=== PATIENT | female | born 1970 | race Caucasian/White ===

== ENCOUNTER 2020-08-23 01:41 | Emergency (ER) | payer MEDICAID, SELFPAY ==
[2020-08-23 01:51] VITALS: BP 103/79; BP 114/72; PULSE 103; PULSE 88; RESP 18; TEMP 36.9; O2SAT 100; BMI 20.2
--- NOTE | 2020-08-23 01:54 | XR_ITS ---
EXAMINATION: XR CHEST CLINICAL INFORMATION: Shortness of breath COMPARISON: 03/09/2020 TECHNIQUE: Frontal view of the chest was obtained. FINDINGS: Lung volumes are symmetric. No focal consolidation is seen. No evidence of pneumothorax, pleural effusion, or pulmonary edema. The cardiomediastinal contour is unremarkable. No acute osseous findings are seen. XR/XR chest 1V IMPRESSION: No acute cardiopulmonary findings.
--- NOTE | 2020-08-23 01:54 | ECG_ITS ---
Test Reason : ANXIETY Blood Pressure : / mmHG Vent. Rate : 110 BPM Atrial Rate : 110 BPM P-R Int : 118 ms QRS Dur : 084 ms QT Int : 332 ms P-R-T Axes : 059 -19 059 degrees QTc Int : 449 ms Sinus tachycardia Left anterior fascicular block Possible Left atrial enlargement Abnormal ECG When compared with ECG of 08-MAR-2020 18:08, QT has shortened Referred By: Florencia Ortega Electronically Signed By:JUAN LUIS PEREZ MD
--- NOTE | 2020-08-23 01:55 | ED_ITS ---
HPI - SOB/Dyspnea General Chief Complaint: Anxiety Stated Complaint: anxiety Time Seen by Provider: 08/23/20 01:52 History of Present Illness HPI Narrative: Patient is a 49-year-old female paraplegic history of stroke history of diabetes history of large decubital ulcer. Presented today with having episode of anxiety attack. Patient feel very anxious. Upon departure from her apartment the symptom has improved. Patient denies any suicidal homicidal ideation. Complaining of chronic pain located in her large decubital ulcer. No chest pain or diaphoresis. No nausea no vomiting. No focal weakness. Related Data Allergies Allergy/AdvReac Type Severity Reaction Status Date / Time No Known Allergies Allergy Unverified 06/20/20 15:45 Review of Systems Review of Systems: Constitutional: No Weight loss, No Fever, No Chills, No Night Sweats, No Fatigue, No Malaise ENT/Mouth: No Hearing loss, No Ear Pain, No Nasal Congestion, No Sinus Pain, No Hoarseness, No sore throat, No Rhinorrhea, No Swallowing Difficulty Eyes: No Eye Pain, No Swelling, No Redness, No Foreign Body, No Discharge, No Vision Changes Cardiovascular: No Chest Pain, No SOB, No Dyspnea on Exertion, No Orthopnea, No Edema, No Palpitations Respiratory: No Cough, No Sputum, No Wheezing, No Smoke Exposure, No Dyspnea Gastrointestinal: No Nausea, No Vomiting, No Diarrhea, No Constipation, No abdominal Pain, No Hematochezia, No Melena Genitourinary: no irregular bleeding, No Dysuria, No Urinary Frequency, No Hematuria, No Urinary Incontinence, No Urgency, No Flank Pain, No Urinary Flow Changes, No Hesitancy Musculoskeletal: No joint pain, No Myalgias, No Joint Swelling Skin: No Skin Lesions, No rash Neuro: No Weakness, No Numbness, No Paresthesias, No Loss of Consciousness, No Dizziness, No Headache Psych: No Anxiety/Panic, No Depression, No SI/HI/AH/VH, No Social Issues, Heme/Lymph: No Bruising, No Bleeding,No Lymphadenopathy Endocrine: No Polyuria, No Polydipsia, No Temperature Intolerance PMFSH Past Medical History Attestation statement: The following information was validated with the patient. Medical History Asthma Diabetes HIV (human immunodeficiency virus infection) HTN (hypertension) Social History Social History Alcohol intake: never Smoking Status: Never smoker Use of substances other than those prescribed or required for medical reasons: No Advance Directives: No Advance Directives Information Provided: No Physical Exam Vital Signs: Vital Signs: Last Vital Signs Temp 98.5 F 08/23/20 05:53 Pulse 96 08/23/20 05:53 Resp 18 08/23/20 05:53 BP 104/59 L 08/23/20 05:53 Pulse Ox 100 08/23/20 05:53 Body Mass Index 20.2 Appearance: Alert. Oriented X3. No acute distress. Eyes: Pupils equal, round and reactive to light. ENT: Pharynx normal. Neck: Normal inspection. Neck supple. No lymph nodes noted. No crepitus CVS: Normal heart rate and rhythm. Pulses normal. Normal S1 and S2 Respiratory: No respiratory distress. Breath sounds normal. No Wheezing. No rales Abdomen: Soft and nontender. No rigidity. No distention. good BS x4 Skin: Skin warm and dry. Normal skin color. 3 large decubital ulcer in the gluteal area down to muscle. With granulation tissue at the base. Extremities: No lower extremity edema. Neurovascular intact to all extremities. No Lacerations. No Rash Neuro: Oriented X 3. Weakness in bilateral lower extremities. No slurred speech MDM - SOB/Dyspnea MDM Narrative Medical decision making narrative: patient has a history of anxiety. No distress. Has nonspecific chest tightness elevation in cardiac enzymes has actually improved from previous. Patient's EKG showed a sinus pattern heart rate was [address] segment elevation noted. Will get a 2nd set of cardiac enzymes. Will monitor carefully. X-ray did not show any evidence of pneumonia pneumothorax. Patient is sleeping after dose of Dilaudid. In no distress. Second set of cardiac enzyme was done there is a less than 10% rise. Will discharge patient home. More likely patient has symptoms suggestive of anxiety. In stable condition with discharge home. X-ray did not show any acute evidence of pneumonia pneumothorax. Lab Data Result diagrams: 08/23/20 02:32 08/23/20 02:32 Labs: Lab Results 08/23/20 08/23/20 08/23/20 Range/Units 02:10 02:32 02:32 WBC 13.4 H (4.8-10.8) X10*3/uL RBC 3.38 L (4.20-5.50) X10*6/uL Hgb 8.3 L (12.0-16.0) g/dl Hct 29.5 L (37-47) % MCV 87.3 (80-98) fL MCH 24.6 L (27.0-33.0) pg MCHC 28.1 L (31.0-35.0) g/dl RDW 15.3 (11.0-16.0) % Plt Count 707 H (160-400) X10*3/uL MPV 8.9 L (9.4-12.3) fL Immature Gran % (Auto) 0.4 (0.0-0.4) % Neut % (Auto) 82.9 H (45-73) % Lymph % (Auto) 10.1 L (20-40) % [place] % (Auto) 6.1 (2-11) % Eos % (Auto) 0.3 (0-4) % Baso % (Auto) 0.2 (0-2) % Lymph # (Auto) 1.4 (1.2-4.9) X10*3/uL [place] # (Auto) 0.8 (0.1-1.2) X10*3/uL Eos # (Auto) 0.0 (0.0-0.4) X10*3/uL Baso # (Auto) 0.0 (0.0-0.2) X10*3/uL Abs Immat Gran (auto) 0.06 H (0.00-0.03) X10*3/uL Absolute Neuts (auto) 11.1 H (2.0-8.3) X10*3/uL Absolute Nucleated RBC 0.000 (0.0-0.012) X10*3/uL Nucleated RBC % (auto) 0.0 (0.0-0.2) /100WBC PT 15.6 H (10.8-13.0) SEC INR 1.3 H (0.9-1.1) Sodium (135-145) mmol/L Potassium (3.3-5.1) mmol/l Chloride (96-108) mmol/L Carbon Dioxide (22-29) mmol/L Anion Gap (12-20) BUN (9-16) mg/dL Creatinine (0.5-1.4) mg/dL Estim Creat Clear Calc Estimated GFR POC Glucose 376 H* (60-115) mg/dL Random Glucose (60-115) mg/dL Calcium (8.4-10.2) mg/dL Total Bilirubin (0.0-1.0) mg/dL Direct Bilirubin (0.0-0.5) mg/dL AST (5-31) U/L ALT (0-31) U/L Alkaline Phosphatase (39-117) U/L Troponin I High Sens (<3.5-17.0) ng/L Total Protein (6.5-8.0) g/dL Albumin (3.5-5.0) g/dL COVID-19 PCR COVID-19 (ADALID) (Negative) COVID-19 Clin Com 08/23/20 08/23/20 08/23/20 Range/Units 02:32 02:32 04:05 WBC (4.8-10.8) X10*3/uL RBC (4.20-5.50) X10*6/uL Hgb (12.0-16.0) g/dl Hct (37-47) % MCV (80-98) fL MCH (27.0-33.0) pg MCHC (31.0-35.0) g/dl RDW (11.0-16.0) % Plt Count (160-400) X10*3/uL MPV (9.4-12.3) fL Immature Gran % (Auto) (0.0-0.4) % Neut % (Auto) (45-73) % Lymph % (Auto) (20-40) % [place] % (Auto) (2-11) % Eos % (Auto) (0-4) % Baso % (Auto) (0-2) % Lymph # (Auto) (1.2-4.9) X10*3/uL [place] # (Auto) (0.1-1.2) X10*3/uL Eos # (Auto) (0.0-0.4) X10*3/uL Baso # (Auto) (0.0-0.2) X10*3/uL Abs Immat Gran (auto) (0.00-0.03) X10*3/uL Absolute Neuts (auto) (2.0-8.3) X10*3/uL Absolute Nucleated RBC (0.0-0.012) X10*3/uL Nucleated RBC % (auto) (0.0-0.2) /100WBC PT (10.8-13.0) SEC INR (0.9-1.1) Sodium 136 (135-145) mmol/L Potassium 5.1 (3.3-5.1) mmol/l Chloride 104 (96-108) mmol/L Carbon Dioxide 22 (22-29) mmol/L Anion Gap 15 (12-20) BUN 9 (9-16) mg/dL Creatinine 0.74 (0.5-1.4) mg/dL Estim Creat Clear Calc 71.1 Estimated GFR > 60 POC Glucose (60-115) mg/dL Random Glucose 450 H* (60-115) mg/dL Calcium 8.0 L (8.4-10.2) mg/dL Total Bilirubin 0.3 (0.0-1.0) mg/dL Direct Bilirubin < 0.2 (0.0-0.5) mg/dL AST 7 (5-31) U/L ALT < 6 (0-31) U/L Alkaline Phosphatase 198 H (39-117) U/L Troponin I High Sens 19.4 H (<3.5-17.0) ng/L Total Protein 6.8 (6.5-8.0) g/dL Albumin 2.5 L (3.5-5.0) g/dL COVID-19 PCR Cancelled COVID-19 (ADALID) (Negative) COVID-19 Clin Com 08/23/20 08/23/20 08/23/20 Range/Units 04:05 06:03 06:18 WBC (4.8-10.8) X10*3/uL RBC (4.20-5.50) X10*6/uL Hgb (12.0-16.0) g/dl Hct (37-47) % MCV (80-98) fL MCH (27.0-33.0) pg MCHC (31.0-35.0) g/dl RDW (11.0-16.0) % Plt Count (160-400) X10*3/uL MPV (9.4-12.3) fL Immature Gran % (Auto) (0.0-0.4) % Neut % (Auto) (45-73) % Lymph % (Auto) (20-40) % [place] % (Auto) (2-11) % Eos % (Auto) (0-4) % Baso % (Auto) (0-2) % Lymph # (Auto) (1.2-4.9) X10*3/uL [place] # (Auto) (0.1-1.2) X10*3/uL Eos # (Auto) (0.0-0.4) X10*3/uL Baso # (Auto) (0.0-0.2) X10*3/uL Abs Immat Gran (auto) (0.00-0.03) X10*3/uL Absolute Neuts (auto) (2.0-8.3) X10*3/uL Absolute Nucleated RBC (0.0-0.012) X10*3/uL Nucleated RBC % (auto) (0.0-0.2) /100WBC PT (10.8-13.0) SEC INR (0.9-1.1) Sodium (135-145) mmol/L Potassium (3.3-5.1) mmol/l Chloride (96-108) mmol/L Carbon Dioxide (22-29) mmol/L Anion Gap (12-20) BUN (9-16) mg/dL Creatinine (0.5-1.4) mg/dL Estim Creat Clear Calc Estimated GFR POC Glucose 287 H (60-115) mg/dL Random Glucose (60-115) mg/dL Calcium (8.4-10.2) mg/dL Total Bilirubin (0.0-1.0) mg/dL Direct Bilirubin (0.0-0.5) mg/dL AST (5-31) U/L ALT (0-31) U/L Alkaline Phosphatase (39-117) U/L Troponin I High Sens 21.9 H (<3.5-17.0) ng/L Total Protein (6.5-8.0) g/dL Albumin (3.5-5.0) g/dL COVID-19 PCR COVID-19 (ADALID) Negative (Negative) COVID-19 Clin Com See Note ECG Data Interpretation: Sinus heart rate is 110 NM QRS QT within normal limits Discharge Plan Discharge Clinical Impression: Acute anxiety Patient Disposition: Home, Self-Care Instructions: Anxiety (ED) Referrals: [facility] [Primary Care Provider] - 2 days
[2020-08-23 02:16] LABS: Glucose, Whole Blood 376 mg/dL (60-115)
[2020-08-23] MEDS: LORazepam 1 MG TABLET PO (02:35)
[2020-08-23 02:39] LABS: Basophils Percent Auto 0.2 % (0-2); Eosinophils Percent Auto 0.3 % (0-4); Hematocrit 29.5 % (37-47); Hemoglobin 8.3 g/dl (12.0-16.0); Imm Gran Abs Auto 0.06 X10*3/uL (0.00-0.03); Imm Gran Pct Auto 0.4 % (0.0-0.4); Lymphocytes Absolute Auto 1.4 X10*3/uL (1.2-4.9); Lymphocytes Percent Auto 10.1 % (20-40); MANUAL DIFF FLAG NO; Mean Corpuscular HGB Conc 28.1 g/dl (31.0-35.0); Mean Corpuscular Hemoglobin 24.6 pg (27.0-33.0); Mean Corpuscular Volume 87.3 fL (80-98); Mean Platelet Volume 8.9 fL (9.4-12.3); Monocytes Absolute Auto 0.8 X10*3/uL (0.1-1.2); Monocytes Percent Auto 6.1 % (2-11); Neutrophils Absolute Auto 11.1 X10*3/uL (2.0-8.3); Neutrophils Percent Auto 82.9 % (45-73); Platelet Count 707 X10*3/uL (160-400); Red Blood Count 3.38 X10*6/uL (4.20-5.50); Red Cell Distribution Width 15.3 % (11.0-16.0); White Blood Count 13.4 X10*3/uL (4.8-10.8)
[2020-08-23 02:49] LABS: INTERNATIONAL NORM RATIO 1.3 (0.9-1.1); Prothrombin Time 15.6 SEC (10.8-13.0)
[2020-08-23 03:18] LABS: Alanine Aminotransferase < 6 U/L (0-31); Albumin Level 2.5 g/dL (3.5-5.0); Alkaline Phosphatase 198 U/L (39-117); Anion Gap 15 (12-20); Aspartate Amino Transferase 7 U/L (5-31); Bilirubin Direct < 0.2 mg/dL (0.0-0.5); Bilirubin Total 0.3 mg/dL (0.0-1.0); Blood Urea Nitrogen 9 mg/dL (9-16); Carbon Dioxide 22 mmol/L (22-29); Chloride 104 mmol/L (96-108); Creatinine Clr Calc Pharmacy 71.1; Estimated Glomerular Filt Rate > 60; Glucose Random 450 mg/dL (60-115); Potassium 5.1 mmol/l (3.3-5.1); Sodium 136 mmol/L (135-145); Total Protein 6.8 g/dL (6.5-8.0); Troponin-I High Sensitivity 19.4 ng/L (<3.5-17.0)
[2020-08-23] MEDS: 0.9 % Sodium Chloride 1,000 ML 999 ML IVCONT (03:52)
[2020-08-23] MEDS: Insulin Regular, Human 100 UNIT/ML 3 ML VIAL IVPUSH (03:52)
--- NOTE | 2020-08-23 03:59 | PC.NURSE ---
this rn in with pat rn to do wound care of pt chronic decubitus ulcers. wound measuring approx 6 inches at widest point on sacrum, 3 inch wide tunneling ulcer noted to pt rt medial buttock. wounds cleaned with wound cleanser and packed with wet gauze, drainage pad applied for cushion. pt tolerating very well and pt wounds healing. pt stating that she has pct that will visit in the morning at about 7am for wound care and pain management
[2020-08-23] MEDS: HYDROmorphone HCl 1 MG/ML SYRINGE IVPUSH (04:07)
[2020-08-23 04:29] LABS: COVID-19 Test Negative (Negative)
[2020-08-23 05:53] VITALS: BP 104/59; PULSE 96; RESP 18; TEMP 36.9; O2SAT 100
[2020-08-23 06:23] LABS: Glucose, Whole Blood 287 mg/dL (60-115)
[2020-08-23 06:35] LABS: Troponin-I High Sensitivity 21.9 ng/L (<3.5-17.0)
[2020-08-23 07:15] VITALS: BP 105/59; PULSE 96; RESP 16; O2SAT 96
--- NOTE | 2020-08-23 07:57 | PC.NURSE ---
PT HAD A LARGE BM, BUTTOCKS/SACRAL AREA CLEANED AND DRESSINGS CHANGED SANDRA CATH EMPTIED OF 400ML URINE IV ACCESS REMOVED UNDERWRITER HERE FOR TRANSPORT HOME
== END 2020-08-23 08:00 | disposition home or self-care (01) ==
PROVIDERS: Emergency Provider Emergency Medicine Emergency Medical Services
DX: F41.1 Generalized anxiety disorder (principal); F43.0 Acute stress reaction; R06.02 Shortness of breath; Z20.828 Contact with and (suspected) exposure to other viral communicable diseases
CPT/HCPCS: 36415; 71045; 80048; 80076; 82947; 84484; 85025; 85610; 87635; 93005; 96361; 96374; 96375; 99284; J1170

== ENCOUNTER 2020-08-25 18:09 | Inpatient (IN) | payer MEDICAID, SELFPAY ==
[2020-08-25 18:24] VITALS: BP 98/70; PULSE 94; RESP 18; TEMP 36.6; O2SAT 100; BMI 20.2
--- NOTE | 2020-08-25 19:11 | ED_ITS ---
HPI - Wound/Laceration General Chief Complaint: Wound/Laceration Stated Complaint: OPEN WOUND ON BOTTOM Time Seen by Provider: 08/25/20 18:33 Source: patient Mode of arrival: EMS Limitations: no limitations History of Present Illness HPI narrative: patient presents to the ED for pain and sacral ulcers. Patient states pain has been occurring for the past 4 days. Patient states no fever, chills, abdominal pain, coughing, chest pain, shortness of breath, or diarrhea. Related Data Previous Rx's Medication Instructions Recorded ciprofloxacin HCl [Cipro] 500 mg PO Q12H #28 tab 08/25/20 doxycycline hyclate 100 mg PO BID #20 cap 08/25/20 Allergies Allergy/AdvReac Type Severity Reaction Status Date / Time No Known Allergies Allergy Verified 08/25/20 18:23 Review of Systems Review of Systems: Yes all other systems are reviewed and are negative Constitutional: Constitutional: Reports as per HPI and Reports no additional constitutional complaints Eyes: Eyes: Reports as per HPI and Reports no additional eye complaints ENT: Reports system reviewed and no additional complaints, except as documented and Reports as per HPI Cardiovascular: Cardiovascular: Reports as per HPI and Reports no additional cardiovascular complaints Respiratory: Respiratory: Reports as per HPI and Reports no additional respiratory complaints Gastrointestinal: Gastrointestinal: Reports as per HPI and Reports no additional gastrointestinal complaints Genitourinary: Genitourinary: Reports no additional female genitourinary complaints and Reports as per HPI Musculoskeletal: Musculoskeletal: Reports no additional musculoskeletal complaints and Reports as per HPI Comments: sacral ulcer pain Neurologic: Reports system reviewed and no additional complaints, except as documented and Reports as per HPI Psychiatric: Psychiatric: Reports no additional psychiatric complaints and Reports as per HPI [facility] Past Medical History Medical History Asthma Diabetes HIV (human immunodeficiency virus infection) HTN (hypertension) Social History Social History Alcohol intake: never Smoking Status: Never smoker Advance Directives: No Advance Directives Information Provided: Yes Physical Exam Vital Signs: Vital Signs: Last Vital Signs Temp 97.9 F 08/25/20 18:24 Pulse 70 08/26/20 00:00 Resp 16 08/26/20 00:00 BP 130/88 08/26/20 00:00 Pulse Ox 97 08/26/20 00:00 Body Mass Index 20.2 Const: General: cooperative, healthy appearing, comfortable, no acute distress and well developed Orientation/consciousness: patient oriented x3 HENMT: Head: Yes normal to inspection and Yes No palpable skull fracture present Eyes: General: appearance normal, both eyes and all related structures Neck: Neck: Yes normal visual inspection, Yes full ROM, Yes no lymphadenopathy, Yes no meningeal signs, Yes trachea midline, Yes supple and Yes tender Chest: Chest palpation & inspection: normal inspection of the chest, normal palpation of entire chest wall and no localized rib tenderness Resp: Effort & Inspection: normal respiratory effort and able to speak in complete sentences Auscultation: clear to auscultation bilaterally Cardio: Jugular venous distension: no JVD Heart sounds: S1 normal heart sound present and S2 normal heart sound present GI: Inspection: Yes normal to inspection and No abdominal wall ecchymosis Palpation (GI): Soft to palpation, not firm, nontender, no guarding and not rigid Back/Spine/Pelvis: Other: she has this large sacral coccyx ulcer - stage III that is healthy looking. patient has right gluteal stage III decubitus ulcer with some yellowish discharge/ collection. Indicate possible infection. Skin: Other: Two large decubitus ulcer Neuro: General: patient oriented x3 and no meningeal signs Extrem: General: Yes normal to inspection Psych: Appearance: grossly normal, well kempt and not disheveled Course Course Course Narrative: labs including lactate and blood cultures will be ordered. Patient will be sent for CT scan to check for osteomyelitis of wound. Reevaluation(s) Reevaluation #1: Patient was sent for CT scan which showed osteomyelitis in his sacral ulcer area. Patient was informed of this. spoke with hospitalist who agreed patient should be admitted. Hospitalist went to see patient, and patient refused to be admitted. Patient informed she could from osteomyelitis which is a bone infection if he does not get admitted for IV antibiotics, but patient refused and would like to be discharged to take the risk of being from osteomyelitis. With Dr. Larsen who recommends patient being sent with Kimi Time: 21:47 Reevaluation #2: Patient family agrees to be admitted after multiple attempts by myself and the nurse for admission. Patient was refusing to receive IV and antibiotics was delaying care. Presently IV antibiotics running. Patient blood pressure improving received Dilaudid. Hospitalist made aware of case. syst olic pressure of 130 on monitor. Time: 01:07 MDM - Wound/Laceration MDM Narrative Medical decision making narrative: osteomyelitis Lab Data Result diagrams: 08/25/20 19:42 08/25/20 19:42 Labs: Lab Results 08/25/20 08/25/20 08/25/20 Range/Units 19:42 19:42 19:42 WBC 12.5 H (4.8-10.8) X10*3/uL RBC 4.19 L D (4.20-5.50) X10*6/uL Hgb 10.3 L D (12.0-16.0) g/dl Hct 37.0 D (37-47) % MCV 88.3 (80-98) fL MCH 24.6 L (27.0-33.0) pg MCHC 27.8 L (31.0-35.0) g/dl RDW 14.9 (11.0-16.0) % Plt Count 792 H (160-400) X10*3/uL MPV 8.8 L (9.4-12.3) fL Immature Gran % (Auto) 0.4 (0.0-0.4) % Neut % (Auto) 78.6 H (45-73) % Lymph % (Auto) 15.4 L (20-40) % [place] % (Auto) 3.6 (2-11) % Eos % (Auto) 1.6 (0-4) % Baso % (Auto) 0.4 (0-2) % Lymph # (Auto) 1.9 (1.2-4.9) X10*3/uL [place] # (Auto) 0.5 (0.1-1.2) X10*3/uL Eos # (Auto) 0.2 (0.0-0.4) X10*3/uL Baso # (Auto) 0.1 (0.0-0.2) X10*3/uL Abs Immat Gran (auto) 0.05 H (0.00-0.03) X10*3/uL Absolute Neuts (auto) 9.9 H (2.0-8.3) X10*3/uL Absolute Nucleated RBC 0.000 (0.0-0.012) X10*3/uL Nucleated RBC % (auto) 0.0 (0.0-0.2) /100WBC PT 15.9 H (10.8-13.0) SEC INR 1.3 H (0.9-1.1) APTT 45.8 H (24.1-38.0) SEC Sodium 137 (135-145) mmol/L Potassium 4.5 (3.3-5.1) mmol/l Chloride 104 (96-108) mmol/L Carbon Dioxide 24 (22-29) mmol/L Anion Gap 14 (12-20) BUN 6 L (9-16) mg/dL Creatinine 0.65 (0.5-1.4) mg/dL Estim Creat Clear Calc 80.9 Estimated GFR > 60 Random Glucose 276 H D (60-115) mg/dL Lactic Acid (0.5-2.0) mmol/L Calcium 9.0 D (8.4-10.2) mg/dL Total Bilirubin < 0.2 (0.0-1.0) mg/dL AST 11 D (5-31) U/L ALT 9 (0-31) U/L Alkaline Phosphatase 212 H (39-117) U/L Total Protein 8.0 (6.5-8.0) g/dL Albumin 3.0 L (3.5-5.0) g/dL 08/25/ Range/Units 19:42 WBC (4.8-10.8) X10*3/uL RBC (4.20-5.50) X10*6/uL Hgb (12.0-16.0) g/dl Hct (37-47) % MCV (80-98) fL MCH (27.0-33.0) pg MCHC (31.0-35.0) g/dl RDW (11.0-16.0) % Plt Count (160-400) X10*3/uL MPV (9.4-12.3) fL Immature Gran % (Auto) (0.0-0.4) % Neut % (Auto) (45-73) % Lymph % (Auto) (20-40) % [place] % (Auto) (2-11) % Eos % (Auto) (0-4) % Baso % (Auto) (0-2) % Lymph # (Auto) (1.2-4.9) X10*3/uL [place] # (Auto) (0.1-1.2) X10*3/uL Eos # (Auto) (0.0-0.4) X10*3/uL Baso # (Auto) (0.0-0.2) X10*3/uL Abs Immat Gran (auto) (0.00-0.03) X10*3/uL Absolute Neuts (auto) (2.0-8.3) X10*3/uL Absolute Nucleated RBC (0.0-0.012) X10*3/uL Nucleated RBC % (auto) (0.0-0.2) /100WBC PT (10.8-13.0) SEC INR (0.9-1.1) APTT (24.1-38.0) SEC Sodium (135-145) mmol/L Potassium (3.3-5.1) mmol/l Chloride (96-108) mmol/L Carbon Dioxide (22-29) mmol/L Anion Gap (12-20) BUN (9-16) mg/dL Creatinine (0.5-1.4) mg/dL Estim Creat Clear Calc Estimated GFR Random Glucose (60-115) mg/dL Lactic Acid 1.3 (0.5-2.0) mmol/L Calcium (8.4-10.2) mg/dL Total Bilirubin (0.0-1.0) mg/dL AST (5-31) U/L ALT (0-31) U/L Alkaline Phosphatase (39-117) U/L Total Protein (6.5-8.0) g/dL Albumin (3.5-5.0) g/dL Discharge Plan Discharge Clinical Impression: Osteomyelitis Patient Disposition: Admitted As Inpatient Additional Instructions: return to the ED immediately for fever, chills, worsening pain, nausea, vomiting, Worsening discharge, foul odor, increased redness, or any other concerning symptoms. Print Language: Tajik
--- NOTE | 2020-08-25 19:28 | CT_ITS ---
EXAMINATION: CT PELVIS WITHOUT CONTRAST CLINICAL INFORMATION: Sacral/coccyx ulcer. Question osteomyelitis. COMPARISON: Most recent CT abdomen/pelvis dated 03/12/2020. TECHNIQUE: Helical scanning was performed with submillimeter collimation through the pelvis. Sagittal and coronal multiplanar 2-D reconstructions were obtained. This CT examination was performed using dose optimization techniques as appropriate, variously including the following: *Automated exposure control. *Adjustment of mA and/or kV according to patient size (this includes techniques or standardized protocols for targeted exams where dose is matched to indication/reason for exam; i.e. extremities or head). *Use of iterative reconstruction technique. DLP: 257 mGy-cm FINDINGS: Redemonstration of a partially visualized right ureteral stent. Burnham catheter in place. Urinary bladder is non-distended. No new intrapelvic mass or fluid collection. The visualized pelvic small and large bowel loops are unremarkable without evidence of obstruction. The uterus is unremarkable. There is new soft tissue ulceration along the posterior aspect of the sacrum measuring up to 8.7 cm in craniocaudal dimension with the posterior sacrum being exposed. There is erosion/absence of the distal sacrum and coccyx involving S4 and S5 as well as the proximal aspect of C1. Findings are consistent with acute osteomyelitis. Prominent adjacent soft tissue stranding most significant ventral to the remaining distal sacrum and coccyx, consistent with cellulitis/phlegmonous change. No associated abscess formation. Chronic, displaced pelvic fractures are redemonstrated with mild interval new bone/callus formation when compared to the prior CT. Redemonstration of a left sacral fracture in similar anatomic alignment with mild new bone/callus formation. CT/CT pelvis wo con IMPRESSION: 1. New large soft tissue ulceration along the posterior aspect of the distal sacrum with associated osseous erosion/absence of bone involving S4 through C1. Findings are consistent with acute osteomyelitis. Prominent adjacent soft tissue stranding, most significant ventral to the remaining distal sacrum and coccyx, consistent with cellulitis/phlegmonous change. No associated abscess formation. 2. Chronic left sacral and pelvic fractures in similar anatomic alignment with mild new bone/callus formation. 3. Partially visualized right ureteral stent and Burnham catheter in appropriate position.
--- NOTE | 2020-08-25 19:46 | PC.NURSE ---
PT REFUSING TORADOL AND FENTANYL AT THIS TIME AND REQUESTING DILAUDID B/O PT STATES NOTHING WORKS FOR MY PAIN . PA IN ROOM FOR RE-EVAL.
[2020-08-25 19:52] LABS: MANUAL DIFF FLAG NO
[2020-08-25 19:59] LABS: INTERNATIONAL NORM RATIO 1.3 (0.9-1.1); Prothrombin Time 15.9 SEC (10.8-13.0)
[2020-08-25] MEDS: 0.9 % Sodium Chloride 1,000 ML 999 ML IVCONT ×2 (20:00→23:22)
[2020-08-25 20:02] LABS: Partial Thromboplastin Time 45.8 SEC (24.1-38.0)
--- NOTE | 2020-08-25 20:02 | PC.NURSE ---
PT TO CT IN STRETCHER.
[2020-08-25 20:04] LABS: Basophils Absolute Auto 0.1 X10*3/uL (0.0-0.2); Basophils Percent Auto 0.4 % (0-2); Eosinophils Absolute Auto 0.2 X10*3/uL (0.0-0.4); Eosinophils Percent Auto 1.6 % (0-4); Hemoglobin 10.3 g/dl (12.0-16.0); Imm Gran Abs Auto 0.05 X10*3/uL (0.00-0.03); Imm Gran Pct Auto 0.4 % (0.0-0.4); Lymphocytes Absolute Auto 1.9 X10*3/uL (1.2-4.9); Lymphocytes Percent Auto 15.4 % (20-40); Mean Corpuscular HGB Conc 27.8 g/dl (31.0-35.0); Mean Corpuscular Hemoglobin 24.6 pg (27.0-33.0); Mean Corpuscular Volume 88.3 fL (80-98); Mean Platelet Volume 8.8 fL (9.4-12.3); Monocytes Absolute Auto 0.5 X10*3/uL (0.1-1.2); Monocytes Percent Auto 3.6 % (2-11); Neutrophils Absolute Auto 9.9 X10*3/uL (2.0-8.3); Neutrophils Percent Auto 78.6 % (45-73); Platelet Count 792 X10*3/uL (160-400); Red Blood Count 4.19 X10*6/uL (4.20-5.50); Red Cell Distribution Width 14.9 % (11.0-16.0); White Blood Count 12.5 X10*3/uL (4.8-10.8)
[2020-08-25 20:15] LABS: Lactic Acid 1.3 mmol/L (0.5-2.0)
[2020-08-25 20:22] LABS: Alanine Aminotransferase 9 U/L (0-31); Alkaline Phosphatase 212 U/L (39-117); Anion Gap 14 (12-20); Aspartate Amino Transferase 11 U/L (5-31); Bilirubin Total < 0.2 mg/dL (0.0-1.0); Blood Urea Nitrogen 6 mg/dL (9-16); Carbon Dioxide 24 mmol/L (22-29); Chloride 104 mmol/L (96-108); Creatinine Clr Calc Pharmacy 80.9; Estimated Glomerular Filt Rate > 60; Glucose Random 276 mg/dL (60-115); Potassium 4.5 mmol/l (3.3-5.1); Sodium 137 mmol/L (135-145)
[2020-08-25] MEDS: Piperacillin Sodium/Tazobactam 3.375 GM in 0.9 % Sodium Chloride 50 ML IV (21:13)
[2020-08-25] MEDS: HYDROmorphone HCl 0.5 MG/0.5 ML SYRINGE 0.25 MG IVPUSH (21:14)
--- NOTE | 2020-08-25 21:34 | PC.NURSE ---
PT IS CONSTANTLY FABRICATOR ARTIFICIAL BREAST CEDENO REQUESTING PAIN MEDS. ZOSYN UP AND RUNNING ALONG WITH NS INTO SITE. PT MEDICATED WITH PAIN MEDS. PT REQUESTING I ALWAYS GET DILAUDID 1MG. PT IS NOT SATISFIED WITH THE DOSE . PA AWARE.
[2020-08-25 22:00] VITALS: BP 100/63; PULSE 94; RESP 16; O2SAT 97
--- NOTE | 2020-08-25 22:00 | PC.NURSE ---
pt c/o not getting enough pain meds . pa in room to speak with pt. pt refusing to stay. chg nurse aware of situation.
--- NOTE | 2020-08-25 22:38 | PC.NURSE ---
CHG NURSE IN ROOM TO SPEAK WITH PT ABOUT GETTING A RIDE HOME BY EMS. PT GIVEN A PHONE TO MAKE CALL FOR A RIDE HOME.
[2020-08-25] MEDS: vancomycin HCL 750 MG in 0.9 % Sodium Chloride 250 ML 265 MG IV (23:05)
[2020-08-25] MEDS: HYDROmorphone HCl 0.5 MG/0.5 ML SYRINGE IVPUSH (23:21)
--- NOTE | 2020-08-25 23:28 | PC.NURSE ---
PT SCREAM OUT LOUD STATING NO ONE IS PAYING ATTENTION TO ME, IM IN PAIN . PT MEDICATED PER EMAR.
[2020-08-26] VITALS (11 sets, daily range): BP systolic 89–148; BP diastolic 54–88; PULSE 70–95; RESP 14–20; TEMP 36.4–37.6; O2SAT 96–100; BMI 20.2
--- NOTE | 2020-08-26 01:19 | PC.NURSE ---
HOSPITALIST IN ROOM FOR EVAL. COVID SWAB OBTAINED TO LAB.
--- NOTE | 2020-08-26 01:28 | PC.NURSE ---
PT DECIDED TO GET ADMITTED AT THIS TIME. PT IS STILL CONSTANTLY YELLING OUT. HOSPITALIST SPEAKING WITH PT AT THIS TIME. PT REMAINS ALERT, RESPIRATIONS EASY, N/L. SKIN W/D. PT IS CONSTANTLY REQUESTING PAIN MEDS.
[2020-08-26 02:00] LABS: COVID-19 Test Negative (Negative)
--- NOTE | 2020-08-26 02:02 | PM.IMHP ---
History of Present Illness Date of Service: 08/26/20 Chief Complaint: sacral wound pain this is a 49-year-old female with an extensive past medical history as below presents to the hospital with complaints of pain at the sacral ulcer. Patient has for oxygen of/ sacral wound that she said has been present further since February and has worsened. She reports that she was being treated for a are different places for the past 4 months including [facility] from [facility], and was sent to [facility] for 2 weeks and was discharged 2 days ago [facility] to her home. Patient reports that she has been at her home for the past 2 days but has been feeling very anxious and has had significant amount of pain in her sacral area. She reports that she was on IV antibiotics and creatinine taking p.o. medications for the wound. she takes wraps the wound pain as 10/10, stabbing crampy pain not relieved with the 0.5 mg of Dilaudid that she has been receiving and is asking for 1 mg of Dilaudid every 2 hours because this is how she was treated of [facility] per patient. She otherwise denies any fever chills, headache, change in vision, abdominal pain nausea or vomiting, chest pain, shortness of breath, no urinary symptoms and no lower extremity edema. Patient reports that she has been bed-bound since February due to weakness of muscles On arrival to the ED hemodynamically stable with a heart rate of 103 otherwise no abnormal vitals Labs are significant for WBC count of 12.5, otherwise no significant abnormality. CT of the pelvis shows osseous erosion /abscess of bone involving C2 for 2 through L1 which is consistent with acute osteomyelitis. Prominent adjacent soft tissue stranding, most significant ventral to the remaining distal sacrum and coccyx consistent with cellulitis /phlegmonous change. past medical history obtained from the chart but confirmed with patient PAST MEDICAL HISTORY: 1. HIV diagnosed in 1998. Last CD4 count in our system from 2018 was 1413. 2. Uncontrolled insulin-requiring diabetes. Last hemoglobin A1c greater than 12 3. Depression. 4. Anxiety. 5. Hypertension. 6. Asthma. 7. Dyslipidemia. 8. History of migraines with history of opiate abuse on Suboxone, negative for any early coronary artery disease. FAMILY HISTORY: No family history of early CAD SOCIAL HISTORY: Lives alone. Smokes cigarettes. History of opiod dependence Review of Systems Review of Systems: Yes all other systems are reviewed and are negative Neurologic: Reports system reviewed and no additional complaints, except as documented and Reports as per [facility] Medical History Asthma Diabetes HIV (human immunodeficiency virus infection) HTN (hypertension) Social History Household Members: Family Housing: Apartment Do you presently have visiting nurse or other home services: Yes Alcohol intake: never Smoking Status: Current every day smoker Smoked in Last 30 Days: Yes Patient Interested in Nicotine Replacement: Yes Patient Given Instructions on How to Stop Smoking: No Second Hand Smoke Exposure: Yes Use of substances other than those prescribed or required for medical reasons: No Last Used Substance: Unknown Last Used Substance Other:: years ago per pt Currently Displaying Signs/Symptoms of Drug Intoxication Withdrawal: No Have you been hit, kicked, punched, or otherwise hurt by someone within the past year? If so, by whom?: No Do you feel safe in your current relationship?: Yes Is there a partner from a previous relationship who is making you feel unsafe now?: No Are you made to feel afraid or neglected: No Advance Directives: No Advance Directives Information Provided: Yes Advance Directives on File: No Do you have thoughts of harming others: None Recently lost weight without trying: No Meds Allergies Allergy/AdvReac Type Severity Reaction Status Date / Time No Known Allergies Allergy Verified 08/25/20 18:23 Physical Exam Vital Signs and Narrative: Vital Signs: Last Vital Signs Temp 97.9 F 08/25/20 18:24 Pulse 70 08/26/20 00:00 Resp 16 08/26/20 00:00 BP 130/88 08/26/20 00:00 Pulse Ox 97 08/26/20 00:00 Body Mass Index 20.2 Const: General: cooperative and no acute distress Orientation/consciousness: patient oriented x3 Eyes: General: appearance normal, both eyes and all related structures Pupils: Equal, round and reactive pupils present Resp: Effort & Inspection: normal respiratory effort and able to speak in complete sentences Auscultation: clear to auscultation bilaterally Cardio: Rate: regular rate Rhythm: regular rhythm GI: Palpation (GI): Soft to palpation Auscultation: normal bowel sounds Skin: General skin exam: no rashes or lesions noted Neuro: General: patient oriented x3 Cranial nerves: Yes Equal, round and reactive pupils present Cognition (Neuro): normal cognition Extrem: Other: unable to lift either lower extremity Has a large bone deep sacral wound with erythema as well as green, discharge General: Yes normal to inspection Results Labs CBC and Chem 7: 08/25/20 19:42 08/25/20 19:42 Labs: Laboratory Results - last 24 hr 08/25/20 08/25/20 08/25/20 19:42 19:42 19:42 MCV 88.3 MCH 24.6 L MCHC 27.8 L RDW 14.9 Plt Count 792 H MPV 8.8 L Immature Gran % (Auto) 0.4 Neut % (Auto) 78.6 H Lymph % (Auto) 15.4 L [place] % (Auto) 3.6 Eos % (Auto) 1.6 Baso % (Auto) 0.4 Lymph # (Auto) 1.9 [place] # (Auto) 0.5 Eos # (Auto) 0.2 Baso # (Auto) 0.1 Abs Immat Gran (auto) 0.05 H Absolute Neuts (auto) 9.9 H Absolute Nucleated RBC 0.000 Nucleated RBC % (auto) 0.0 PT 15.9 H INR 1.3 H APTT 45.8 H Anion Gap 14 Estim Creat Clear Calc 80.9 Estimated GFR > 60 Random Glucose 276 H D Lactic Acid Calcium 9.0 D Total Bilirubin < 0.2 AST 11 D ALT 9 Alkaline Phosphatase 212 H Total Protein 8.0 Albumin 3.0 L COVID-19 ([facility]ID) COVID-19 Clin Com 08/25/20 08/26/20 19:42 01:14 MCV MCH MCHC RDW Plt Count MPV Immature Gran % (Auto) Neut % (Auto) Lymph % (Auto) [place] % (Auto) Eos % (Auto) Baso % (Auto) Lymph # (Auto) [place] # (Auto) Eos # (Auto) Baso # (Auto) Abs Immat Gran (auto) Absolute Neuts (auto) Absolute Nucleated RBC Nucleated RBC % (auto) PT INR APTT Anion Gap Estim Creat Clear Calc Estimated GFR Random Glucose Lactic Acid 1.3 Calcium Total Bilirubin AST ALT Alkaline Phosphatase Total Protein Albumin COVID-19 (ADALID) Negative COVID-19 Clin Com See Note Imaging Radiologist's Impressions: Impressions Pelvis CT 08/25/20 19:28 IMPRESSION: 1. New large soft tissue ulceration along the posterior aspect of the distal sacrum with associated osseous erosion/absence of bone involving S4 through C1. Findings are consistent with acute osteomyelitis. Prominent adjacent soft tissue stranding, most significant ventral to the remaining distal sacrum and coccyx, consistent with cellulitis/phlegmonous change. No associated abscess formation. 2. Chronic left sacral and pelvic fractures in similar anatomic alignment with mild new bone/callus formation. 3. Partially visualized right ureteral stent and Burnham catheter in appropriate position. Assessment and Plan (1) Osteomyelitis: Status: Acute (2) Leukocytosis: Status: Acute (3) Diabetes: Status: Acute (4) HTN (hypertension): Status: Acute (5) HIV (human immunodeficiency virus infection): Status: Acute this is a 49-year-old female who presents to the hospital with a sacral wound found to have acute osteomyelitis # acute osteomyelitis - per patient she has had this sacral wound for the past 4 months being managed at different hospitals, reports that she was treated at [facility] as well as the [facility] for the past 4 months and was on antibiotics and currently is on ciprofloxacin p.o. - per CT patient has acute osteomyelitis as well as cellulitis - has leukocytosis, afebrile Plan: - Given her history of diabetes and recurrent infection will start her on vancomycin and Zosyn - will obtain ESR and CRP - blood cultures drawn will follow - pain control with Dilaudid/morphine - infectious disease consult # leukocytosis - most likely secondary to acute infection /osteomyelitis Plan: - start on IV antibiotics - follow CBC # hypertension - low - will antihypertensives for now # diabetes mellitus - low-dose sliding scale insulin - diabetic diet # HIV - continue home medications DVT prophylaxis: Lovenox
--- NOTE | 2020-08-26 02:12 | PC.NURSE ---
PT CONSTANTLY CRYING OUT. PT STATES IM IN PAIN AND NO ONE IS DOING ANYTHING.
[2020-08-26] MEDS: HYDROmorphone HCl 0.5 MG/0.5 ML SYRINGE 0.25 MG IVPUSH (02:23)
--- NOTE | 2020-08-26 03:22 | PC.NURSE ---
PT IS CONSTANTLY YELLING OUT, PT IS TOLD SEVERAL TIMES TO STOP YELLING, PT YELLING AT STAFF SHUT UP, I'M IN PAIN . PT UNCOOPERATIVE AND IS CONSTANTLY YELLING IM IN PAIN EVEN AFTER GETTING PAIN MEDS. PT IS UNSATISFIED WITH THE AMT OF PAIN MEDS AND WANTS DILAUDID 1 MG. PT AWAITING FOR ROOM ASSIGNMENT. PT IS DISRUPTING OTHER PTS IN ED.
--- NOTE | 2020-08-26 03:34 | PC.NURSE ---
UNABLE TO REACH PT'S PHARMACY D/T BEING CLOSED AT THIS TIME. PT UNSURE OF WHAT MEDS SHE IS ON. UNABLE TO DO MED REC AT THIS TIME.
--- NOTE | 2020-08-26 04:02 | PC.NURSE ---
REPORT TO EMILY SANCHEZ. PT TO FLOOR AT THIS TIME. PT LEFT ED IN NAD. HL FLUSHES EASILY W/O RESISTANCE.
--- NOTE | 2020-08-26 04:38 | PC.NURSE ---
UNABLE TO PRINT PICTURES D/T UNABLE TO IDENTIFY WHICH PICTURES ARE THE PT'S PICTURES.
[2020-08-26] MEDS: Piperacillin Sodium/Tazobactam 3.375 GM in 0.9 % Sodium Chloride 50 ML IV ×4 (04:39→22:45)
[2020-08-26] MEDS: HYDROmorphone HCl 1 MG/ML SYRINGE IVPUSH ×5 (04:49→23:58)
[2020-08-26] MEDS: Enoxaparin Sodium 40 MG/0.4 ML SYRINGE SUBCUT (05:20)
--- NOTE | 2020-08-26 06:50 | PC.NURSE ---
PATIENT IS A 49 YEAR OLD FEMALE ADMITTED VIA STRETCHER FROM ED WITH OSTEOMEYLITIS AND PRESSURE ULCERS THAT ARE CHRONIC. IN REPORT FROM ED STAFF WAS INFORMED PHOTOS WERE TAKEN AND FOAM DRESSINGS APPLIED. UPON ARRIVAL IT WAS NOTED THAT PHOTOS WERE NOT INCLUDED IN PT PAPERWORK. TRANSPORTER WAS GOING TO GO BACK TO ED AND CHECK, HOWEVER, THE NURSE WHO TOOK THE PHOTOS FORGOT TO PRINT THEM AND NOW ADDITIONAL PHOTOS HAD BEEN TAKE AND UNABLE TO VERIFY, CLARIFY WHICH SKIN WOUNDS TO THIS PATIENT. UPON ADMISSION PATIENT WAS IN 9/10 PAIN, WAS MEDICATED, FINALLY HAD RELIEF, AND DECLINED TO HAVE DRESSINGS REMOVED AT THIS POINT FOR PHOTOS AND REDRESSED. NURSING MACHINE GROUP LEADER WAS ALERTED TIMES 2 ATTEMPTS TO ASSIST TO RETRIEVE PHOTOS WITH NO LUCK.. MACHINE GROUP LEADER STATED LEAVE PATIENT TO REST, DOCUMENT AND LET NEXT SHIFT TAKE PICTURES. ATTEMPT MADE AGAIN BUT PATIENT COMFORTABLE AND WANTED TO SLEEP. DOCUMENTATION FOLLOWS LARGE CHRONIC SACRUL UCLER WITH LARGE FOAM DSG, GAUZE AND ABD TO RAFAEL BUTTOCKS WOUND WITH A SCANT SHADOW STAIN OF DRIED BLOOD, FOAM DSG TO UPPER MID BACK C-D-I, AND FINALLY FOAM AT RIGHT GLUTEAL FOLD. PATIENT HAS ABRASIONS TO RAFAEL KNEES AND ROUND DRY SCARRING AT BOTH LOWER LEGS. DAY RN UPDATED ON THIS ISSUE.
[2020-08-26 07:16] LABS: C Reactive Protein 5.67 mg/dL (< or = 0.50)
[2020-08-26 07:25] LABS: Glucose, Whole Blood 260 mg/dL (60-115)
[2020-08-26 07:33] LABS: Erythrocyte Sedimentation Rate 101 MM/HR (0-20)
[2020-08-26] MEDS: Morphine Sulfate 4 MG/ML CARTRIDGE IVPUSH ×4 (07:38→21:33)
[2020-08-26] MEDS: Insulin Lispro 100 UNIT/ML 3 ML VIAL SUBCUT ×4 (07:38→21:32)
[2020-08-26] MEDS: 0.9 % Sodium Chloride Flush 3 ML SYRINGE IVFLUSH ×3 (07:39→21:33)
[2020-08-26] MEDS: vancomycin HCL 1,000 MG in 0.9 % Sodium Chloride 250 ML 270 MG IV (07:39)
[2020-08-26 11:31] LABS: Glucose, Whole Blood 168 mg/dL (60-115)
--- NOTE | 2020-08-26 11:50 | MHC.CM.PN ---
PATIENT LIVES AT [address] [place] [address] IN [place]; [address]. REFERRAL PLACED TO [facility]. PATIENT'S DAUGHTER, ZARINA, WILL SERVE PCP ACCORDING TO PATIENT. GILBERTO'S CONTACT NUMBER IS [phone]. HCP ON FILE AND VERIFED. COPY IS IN CHART.
--- NOTE | 2020-08-26 14:49 | MHC.CM.PN ---
OF THIS NOTE, CASE MANAGEMENT IS UNABLE TO SECURE A VISITING NURSE AGENCY FOR WOUND CARE. HOSPITALIST AWARE.
--- NOTE | 2020-08-26 15:42 | MHC.CLN ---
RE: CONSULT RECOMMEND STARTING GLUCERNA BID AND VINCENT FOR WOUND HEALING 1800 DM DIET APPROPRIATE
--- NOTE | 2020-08-26 16:29 | W.PM.IDCN ---
History of Present Illness Data of Consult Service Date: 08/26/20 Requesting physician: Trae Coughlin Primary Care Provider: Unknown Physician HPI Reason for consult: sacral wound infection She presents with worsening pain in sacral area for last three days and feels feverish She has been on antibiotics for last four months She is on Cipro now Review of Systems Review of Systems: Yes all other systems are reviewed and are negative Musculoskeletal: Comments: sacral pain Neurologic: Reports system reviewed and no additional complaints, except as documented and Reports as per HPI [facility] Past Medical History Medical History Asthma Diabetes History of osteomyelitis HIV (human immunodeficiency virus infection) HTN (hypertension) MSSA bacteremia Family History Family History (Updated 08/27/20 @ 21:18 by Dc East DO) Other Family history non-contributory Social History Social History Household Members: Family Housing: Apartment Alcohol intake: never Smoking Status: Current every day smoker Smoked in Last 30 Days: No Second Hand Smoke Exposure: Yes Use of substances other than those prescribed or required for medical reasons: No Any prior treatment program specific to substance use: No Advance Directives: No Advance Directives Information Provided: Yes Meds Allergies Allergy/AdvReac Type Severity Reaction Status Date / Time No Known Allergies Allergy Verified 08/25/20 18:23 Home Medications Medication Instructions Recorded Confirmed Type Lactobacillus rhamnosus GG 1 cap PO BID 08/26/20 08/29/20 History acetaminophen 650 mg PO Q6H PRN 08/26/20 08/29/20 History albuterol sulfate [Ventolin HFA] 2 puff INHALATION Q6H PRN 08/26/20 08/29/20 History ascorbic acid (vitamin C) 500 mg PO BID 08/26/20 08/29/20 History bisacodyl 10 mg ID DAILY 08/26/20 08/29/20 History cephalexin 500 mg PO BID 08/26/20 08/29/20 History cholecalciferol (vitamin D3) 75 mcg PO DAILY 08/26/20 08/29/20 History clonazepam 0.5 mg PO BID PRN 08/26/20 08/29/20 History clopidogrel 75 mg PO DAILY 08/26/20 08/29/20 History dolutegravir 50 mg PO BID 08/26/20 08/29/20 History emtricitabine-tenofovir (TDF) 1 tab PO DAILY 08/26/20 08/29/20 History [Truvada] ferrous sulfate 325 mg PO BID 08/26/20 08/29/20 History gabapentin 100 mg PO TID 08/26/20 08/29/20 History heparin (porcine) 5,000 unit SUBCUT BID 08/26/20 08/29/20 History insulin glargine [Lantus U-100 24 unit SUBCUT BEDTIME 08/26/20 08/29/20 History Insulin] insulin lispro [Humalog U-100 1 sliding scale dose SUBCUT QIDACHS 08/26/20 08/29/20 History Insulin] insulin lispro [Humalog U-100 8 unit SUBCUT TID 08/26/20 08/29/20 History Insulin] lamotrigine [Lamictal] 200 mg PO BEDTIME 08/26/20 08/29/20 History magnesium hydroxide [Milk of 400 mg PO BEDTIME PRN 08/26/20 08/29/20 History Magnesia] melatonin 10 mg PO BEDTIME PRN 08/26/20 08/29/20 History miconazole nitrate 1 applic TOPICAL QSHIFT 08/26/20 08/29/20 History mirtazapine 15 mg PO BEDTIME 08/26/20 08/29/20 History oxycodone 10 mg PO Q4H PRN 08/26/20 08/29/20 History polyethylene glycol 3350 [Miralax] 17 g PO DAILY PRN 08/26/20 08/29/20 History potassium, sodium phosphates 2 packet PO DAILY 08/26/20 08/29/20 History [Phos-NaK] pyridoxine (vitamin B6) 50 mg PO DAILY 08/26/20 08/29/20 History rifampin 300 mg PO BID 08/26/20 08/29/20 History zinc sulfate 220 mg PO DAILY 08/26/20 08/29/20 History Physical Exam Vital Signs: Vital Signs: Last Vital Signs Temp 98.6 F 08/26/20 15:22 Pulse 77 08/26/20 15:22 Resp 16 08/26/20 15:22 BP 103/59 L 08/26/20 15:22 Pulse Ox 100 08/26/20 15:22 Body Mass Index 20.2 Const: General: cooperative HENMT: Head: Yes normal to inspection Eyes: General: appearance normal, both eyes and all related structures Resp: Effort & Inspection: normal respiratory effort Cardio: Rate: regular rate Rhythm: regular rhythm GI: Inspection: Yes normal to inspection : General: Yes no CVA tenderness Back/Spine/Pelvis: Back: no CVA tenderness Skin: Other: old hypopigmented areas knees General skin exam: no rashes or lesions noted Assessment and Plan (1) History of osteomyelitis: Problem details: h/o MSSA bacteremi Status: Acute Await blood cultures No terminal make up operator IV antibiotics likely if blood cultures negative Surgery evaluation sacrum ,culture ,Wound Clinic (2) HIV (human immunodeficiency virus infection): Problem details: Needs medication Will investigate Status: Acute Results Labs CBC & Chem 7: 08/27/20 06:45 08/27/20 06:45 Labs: Short CBC 08/25/20 Range/Units 19:42 WBC 12.5 H (4.8-10.8) X10*3/uL Hgb 10.3 L D (12.0-16.0) g/dl Hct 37.0 D (37-47) % Plt Count 792 H (160-400) X10*3/uL BMP 08/25/20 19:42 Sodium 137 Potassium 4.5 Chloride 104 Carbon Dioxide 24 BUN 6 L Creatinine 0.65 Calcium 9.0 D Liver Function 08/25/20 Range/Units 19:42 Total Bilirubin < 0.2 (0.0-1.0) mg/dL AST 11 D (5-31) U/L ALT 9 (0-31) U/L Alkaline Phosphatase 212 H (39-117) U/L Albumin 3.0 L (3.5-5.0) g/dL
[2020-08-26 16:36] LABS: Glucose, Whole Blood 228 mg/dL (60-115)
[2020-08-26] MEDS: vancomycin HCL 1,000 MG in 0.9 % Sodium Chloride 250 ML 250 MG IV (19:28)
[2020-08-26] MEDS: clonazePAM 0.5 MG TABLET PO (20:21)
[2020-08-26 21:07] LABS: Glucose, Whole Blood 224 mg/dL (60-115)
[2020-08-27 03:06] VITALS: BP 119/67; PULSE 78; RESP 16; TEMP 37.3; O2SAT 100
[2020-08-27] MEDS: HYDROmorphone HCl 1 MG/ML SYRINGE IVPUSH ×2 (03:53→08:22)
[2020-08-27] MEDS: Piperacillin Sodium/Tazobactam 3.375 GM in 0.9 % Sodium Chloride 50 ML IV ×2 (03:53→10:04)
[2020-08-27] MEDS: Enoxaparin Sodium 40 MG/0.4 ML SYRINGE SUBCUT (05:22)
[2020-08-27] MEDS: diphenhydrAMINE HCL 50 MG/ML VIAL 25 MG IVPUSH (06:20)
[2020-08-27 07:01] LABS: MANUAL DIFF FLAG NO
[2020-08-27 07:09] LABS: Basophils Percent Auto 0.4 % (0-2); Eosinophils Absolute Auto 0.1 X10*3/uL (0.0-0.4); Eosinophils Percent Auto 1.2 % (0-4); Hematocrit 26.1 % (37-47); Hemoglobin 7.4 g/dl (12.0-16.0); Imm Gran Abs Auto 0.06 X10*3/uL (0.00-0.03); Imm Gran Pct Auto 0.5 % (0.0-0.4); Lymphocytes Absolute Auto 1.4 X10*3/uL (1.2-4.9); Lymphocytes Percent Auto 12.8 % (20-40); Mean Corpuscular HGB Conc 28.4 g/dl (31.0-35.0); Mean Corpuscular Volume 88.2 fL (80-98); Mean Platelet Volume 9.2 fL (9.4-12.3); Monocytes Absolute Auto 0.7 X10*3/uL (0.1-1.2); Monocytes Percent Auto 6.3 % (2-11); Neutrophils Absolute Auto 8.7 X10*3/uL (2.0-8.3); Neutrophils Percent Auto 78.8 % (45-73); Platelet Count 499 X10*3/uL (160-400); Red Blood Count 2.96 X10*6/uL (4.20-5.50); Red Cell Distribution Width 15.2 % (11.0-16.0); White Blood Count 11.1 X10*3/uL (4.8-10.8)
[2020-08-27 07:43] VITALS: BP 115/73; PULSE 78; RESP 18; TEMP 37; O2SAT 100
[2020-08-27 07:47] LABS: Anion Gap 10 (12-20); Blood Urea Nitrogen 6 mg/dL (9-16); Carbon Dioxide 20 mmol/L (22-29); Chloride 108 mmol/L (96-108); Creatinine Clr Calc Pharmacy 78.5; Estimated Glomerular Filt Rate > 60; Glucose Random 286 mg/dL (60-115); Potassium 4.4 mmol/l (3.3-5.1); Sodium 134 mmol/L (135-145)
[2020-08-27 07:56] LABS: Glucose, Whole Blood 303 mg/dL (60-115)
[2020-08-27 08:01] LABS: Calcium 7.8 mg/dL (8.4-10.2); Vancomycin Trough 16.7 mcg/mL (10.0-20.0)
[2020-08-27] MEDS: vancomycin HCL 1,000 MG in 0.9 % Sodium Chloride 250 ML 270 MG IV (08:08)
[2020-08-27] MEDS: 0.9 % Sodium Chloride Flush 3 ML SYRINGE IVFLUSH (08:09)
[2020-08-27] MEDS: Insulin Lispro 100 UNIT/ML 3 ML VIAL SUBCUT ×2 (08:09→12:26)
--- NOTE | 2020-08-27 09:22 | PC.NURSE ---
Dr. Coughlin came to the desk and asked this RN to call the Blood Bank and cancel the Blood transfusion. I called Blood Bank and spoke to Javier concerning this. He cancelled the Type and Screen and the Unit of Blood to be transfused.
[2020-08-27 11:22] VITALS: BP 120/60; PULSE 80; RESP 17; TEMP 37.2; O2SAT 100
[2020-08-27 11:38] LABS: Glucose, Whole Blood 227 mg/dL (60-115)
--- NOTE | 2020-08-27 13:20 | MHC.CM.PN ---
TWO MESSAGES LEFT FOR EMILY HERNANDEZ OF [facility]. ([phone]) DAVID ORIGINALLY ASKING FOR WOUND CARE ORDERS. CALL BACK NUMBER FOR THIS REGISTERED SAFETY ENGINEER GIVEN
--- NOTE | 2020-08-27 13:42 | MHC.CM.PN ---
MESSAGE LEFT FOR POST-ACUTE CARE FOLLOWUP AT [facility] ([phone]) THIS FERRY OPERATOR ATTMEMTING TO MAKE A F/U APPOINTMENT FOR PATIENT FOR MEDICATION ADJUSTMENTS AND RESTART.
--- NOTE | 2020-08-27 14:01 | MHC.CM.PN ---
NO [facility] ACCEPTANCE OF THIS NOTE. HOSPITALIST AWARE
[2020-08-27] MEDS: oxyCODONE HCl Immed Release 5 MG TABLET 10 MG PO (14:36)
--- NOTE | 2020-08-27 15:02 | MHC.CM.PN ---
PATIENT IS LEAVING AMA. NO TRANSPORT AVAILABLE FOR PATIENT, AND [facility]SP[facility] IS SCHEDULED. UNIT, RN, AND PATIENT AWARE OF PLAN. PATIENT HAS BEEN MADE AWARE THAT SHE WILL NEED TO SCHEDULE A FOLLOW UP VISIT WITH HER PCP. SHE IS ALSO AWARE THAT NO [facility] AGENCY REFERRALS ARE ABLE TO OFFER SERVICES
--- NOTE | 2020-08-27 15:41 | PC.NURSE ---
pt very upaset that her dilaudid was dc'd. refused oxycone yelling for Dr Coughlin to see her. Dr Coughlin explained that she would be going home and would be off the dilaudid. pt then decided to sighn out ama. She refused to wait for wound care consult. By 1430 she did agree to take oxycodone. and allowed me to change all her wound dgs . iv was removed and pt signed out ama . ambulance to pick her up at 4pm
[2020-08-27 15:46] VITALS: BP 152/70; PULSE 83; RESP 18; TEMP 36.6; O2SAT 100
--- NOTE | 2020-08-27 16:06 | MHC.CM.PN ---
CALL RECEIVED FROM [facility] PATIENT NOW HAS A SCHEDULED IN-PERSON VISIT FOR 09/06/2020 @ 10:00. INFORMATION PLACED IN DC INSTRUCTION PAPERWORK. HOSPITALIST MADE AWARE. DC PAPERWORK FAXED TO [facility] @ [phone].
--- NOTE | 2020-08-27 17:01 | P.DS_ITS ---
DS: Providers Provider Date of admission: 08/26/20 01:43 Primary care physician: Unknown Physician Consults: 08/26/20 04:12 Consult to Infectious Diseases Routine Consulting Provider: Janny Shanks Reason for consultation: Osteomyelitis Has provider been notified: No 08/26/20 14:58 Consult to Wound Care Provider Routine Consulting Provider: Miky Leija Reason for consultation: sacral wound osteo Has provider been notified: No DS: Diagnosis Discharge Diagnosis (1) History of osteomyelitis: Status: Acute Problem details: h/o MSSA bacteremi (2) HIV (human immunodeficiency virus infection): Status: Acute Problem details: Needs medication Will investigate DS: Medications Discharge Medications Home Medications: Home Medications Medication Instructions Recorded Confirmed Lactobacillus rhamnosus GG 1 cap PO BID 08/26/20 08/26/20 acetaminophen 650 mg PO Q6H PRN 08/26/20 08/26/20 albuterol sulfate [Ventolin HFA] 2 puff INHALATION Q6H PRN 08/26/20 08/26/20 ascorbic acid (vitamin C) 500 mg PO BID 08/26/20 08/26/20 bisacodyl 10 mg MD DAILY 08/26/20 08/26/20 cephalexin 500 mg PO BID 08/26/20 08/26/20 cholecalciferol (vitamin D3) 75 mcg PO DAILY 08/26/20 08/26/20 clonazepam 0.5 mg PO BID PRN 08/26/20 08/26/20 clopidogrel 75 mg PO DAILY 08/26/20 08/26/20 dolutegravir 50 mg PO BID 08/26/20 08/26/20 emtricitabine-tenofovir (TDF) 1 tab PO DAILY 08/26/20 08/26/20 [Truvada] ferrous sulfate 325 mg PO BID 08/26/20 08/26/20 gabapentin 100 mg PO TID 08/26/20 08/26/20 heparin (porcine) 5,000 unit SUBCUT BID 08/26/20 08/26/20 insulin glargine [Lantus U-100 24 unit SUBCUT BEDTIME 08/26/20 08/26/20 Insulin] insulin lispro [Humalog U-100 1 sliding scale dose SUBCUT QIDACHS 08/26/20 08/26/20 Insulin] insulin lispro [Humalog U-100 8 unit SUBCUT TID 08/26/20 08/26/20 Insulin] lamotrigine [Lamictal] 200 mg PO BEDTIME 08/26/20 08/26/20 magnesium hydroxide [Milk of 400 mg PO BEDTIME PRN 08/26/20 08/26/20 Magnesia] melatonin 10 mg PO BEDTIME PRN 08/26/20 08/26/20 miconazole nitrate 1 applic TOPICAL QSHIFT 08/26/20 08/26/20 mirtazapine 15 mg PO BEDTIME 08/26/20 08/26/20 oxycodone 10 mg PO Q4H PRN 08/26/20 08/26/20 polyethylene glycol 3350 [Miralax] 17 g PO DAILY PRN 08/26/20 08/26/20 potassium, sodium phosphates 2 packet PO DAILY 08/26/20 08/26/20 [Phos-NaK] pyridoxine (vitamin B6) 50 mg PO DAILY 08/26/20 08/26/20 rifampin 300 mg PO BID 08/26/20 08/26/20 zinc sulfate 220 mg PO DAILY 08/26/20 08/26/20 DS: Summary Hospital Course Hospital Course: history of presenting illness Chief Complaint: sacral wound pain 49-year-old female with an extensive past medical history as below presents to the hospital with complaints of pain at the sacral ulcer. Patient has for oxygen of/ sacral wound that she said has been present further since February and has worsened. She reports that she was being treated for a are different places for the past 4 months including [facility] from [facility] to [place] [facility], and was sent to [place] long-term for 2 weeks and was discharged 2 days ago From long-term to her home. Patient reports that she has been at her home for the past 2 days but has been feeling very anxious and has had significant amount of pain in her sacral area. She reports that she was on IV antibiotics and creatinine taking p.o. medications for the wound. she takes wraps the wound pain as 10/10, stabbing crampy pain not relieved with the 0.5 mg of Dilaudid that she has been receiving and is asking for 1 mg of Dilaudid every 2 hours because this is how she was treated of [place] per patient. She otherwise denies any fever chills, headache, change in vision, abdominal pain nausea or vomiting, chest pain, shortness of breath, no urinary symptoms and no lower extremity edema. Patient reports that she has been bed-bound since February due to weakness of muscles On arrival to the ED hemodynamically stable with a heart rate of 103 otherwise no abnormal vitals Labs are significant for WBC count of 12.5, otherwise no significant abnormality. CT of the pelvis shows osseous erosion /abscess of bone involving C2 for 2 through L1 which is consistent with acute osteomyelitis. Prominent adjacent soft tissue stranding, most significant ventral to the remaining distal sacrum and coccyx consistent with cellulitis /phlegmonous change. hospital course # sacral wound infection with history of osteomyelitis per patient she has had this sacral wound for the past 4 months being managed at different hospitals, patient treated initially at [facility] then subsequently transferred to [facility] was patient was treated for 1 month and was subsequently discharged to a rehab facility in [place] where she stayed for 2 months and was then transferred to [place] rehab patient left [place] against medical advice few days ago, and came to [facility] due to worsening pain at sacral wound and feeling feverish patient at the time of discharge was on Cipro and not clear whether she was also on Keflex and rifampin, at [facility] patient was noted to have mild leukocytosis and no fever patient was placed on broad-spectrum antibiotic IV Zosyn and vancomycin her 2 set of blood cultures came back negative patient was evaluated by Dr. Shanks plan was to discontinue IV antibiotics if blood cultures are negative and to place her on by mouth antibiotics and to have wound consultation but patient decided to leave against medical advice since her IV Dilaudid was discontinued, patient was explained that she is on no medications at home and currently receiving high-dose oxycodone that will be the medicines that she will be going home , since patient appeared hemodynamically stable there was no reason to escalate pain management patient refused to stay for wound care and for arrangement for VNA and Infectious Disease input, spoke with patient's sister Asia over the phone and explained the patient's current medical condition and treatment plan, an appointment has been made for her with her primary care physician for 09/06/2020 patient has been recommended to continue all home medications as before to be prescribed by her PCP. Time Spent with Patient Time attestation: Total time spent providing and/or coordinating discharge services: Physical Exam Vital Signs: Vital Signs: Last Vital Signs Temp 98 F 08/27/20 15:46 Pulse 83 08/27/20 15:46 Resp 18 08/27/20 15:46 BP 152/70 H 08/27/20 15:46 Pulse Ox 100 08/27/20 15:46 Body Mass Index 20.2 General patient awake alert,no acute distress. Neck supple no JVD. CVS regular rate rhythm, Respiratory lungs clear to auscultation, no respiratory distress Gastrointestinal abdomen soft, nontender, bowel sounds audible Extremities no edema. Neuro nonfocal lower back deep sacral wound, no drainage, another small wound close to Donna rectal area also with no drainage, no surrounding erythema of skin. DS: Data Data Completed and Pending Labs on day of discharge: 08/25/20 19:00 0.9 % Sodium Chloride [Ns] 1,000 ml IVCONT 999 mls/hr 08/25/20 19:04 Ketorolac Tromethamine [Toradol] 30 mg IVPUSH ONCE STA 08/25/20 19:27 fentaNYL citrate/PF [Sublimaze] 50 mcg IVPUSH ONCE STA 08/25/20 19:28 CT pelvis wo con Stat 08/25/20 19:42 Complete Blood Count Auto Diff Stat Comprehensive Met. Panel Stat Lactic Acid Stat Partial Thromboplastin Time Stat Prothrombin Time INR Stat 08/25/20 20:51 vancomycin HCL 750 mg 0.9 % Sodium Chloride [Ns] 250 ml IV ONCE 08/25/20 20:56 Piperacillin Sodium/Tazobactam [Zosyn] 3.375 gm 0.9 % Sodium Chloride [Ns] 50 ml IV ONCE 08/25/20 21:02 HYDROmorphone HCl [Dilaudid] 0.25 mg IVPUSH ONCE STA 08/25/20 21:06 Piperacillin Sodium/Tazobactam [Zosyn] 3.375 gm IV .STK-MED ONE 08/25/20 21:38 vancomycin HCL 750 mg IV .STK-MED ONE 08/25/20 23:01 0.9 % Sodium Chloride [Ns] 1,000 ml IVCONT 999 mls/hr HYDROmorphone HCl [Dilaudid] 0.5 mg IVPUSH ONCE STA 08/26/20 01:14 COVID-19 ID NOW (Chavira) Stat 08/26/20 01:31 Transfer Order Routine 08/26/20 01:33 Code Status Routine 08/26/20 02:14 HYDROmorphone HCl [Dilaudid] 0.25 mg IVPUSH ONCE STA 08/26/20 04:12 Acetaminophen [Tylenol] 650 mg PO Q6H PRN Docusate Sodium [Colace] 100 mg PO DAILY PRN HYDROmorphone HCl [Dilaudid] 1 mg IVPUSH Q4H PRN Morphine Sulfate 4 mg IVPUSH Q4H PRN ondansetron HCL [Zofran] 4 mg IVPUSH Q8H PRN 08/26/20 04:12 Ambulate QSHIFT WHILE AWAKE IV insert/maintain Q4HR Intake and Output Q8HR Vital Signs Q4HR 08/26/20 04:30 Piperacillin Sodium/Tazobactam [Zosyn] 3.375 gm 0.9 % Sodium Chloride [Ns] 50 ml IV Q6H 08/26/20 04:31 Piperacillin Sodium/Tazobactam [Zosyn] 3.375 gm IV .STK-MED ONE 08/26/20 05:46 Glucose, blood poc QIDACHS 08/26/20 06:00 Enoxaparin Sodium [Lovenox] 40 mg SUBCUT Q24H 08/26/20 06:17 C Reactive Protein Stat Erythrocyte Sedimentation Rate Stat 08/26/20 07:13 Glucose, Whole Blood Routine 08/26/20 07:30 Insulin Lispro [Humalog] See Protocol SUBCUT QIDACHS 08/26/20 07:35 vancomycin HCL 1,000 mg .ROUTE .STK-MED ONE 08/26/20 08:00 0.9 % Sodium Chloride Flush [NS Flush] 3 ml IVFLUSH QSHIFT vancomycin HCL 1,000 mg 0.9 % Sodium Chloride [Ns] 250 ml IV Q12H 08/26/20 09:57 Piperacillin Sodium/Tazobactam [Zosyn] 3.375 gm IV .STK-MED ONE 08/26/20 Breakfast Diabetic Diet 08/26/20 11:06 Glucose, Whole Blood Routine 08/26/20 14:58 Dietitian / Nutrition Consult .Routine 08/26/20 16:33 Glucose, Whole Blood Routine 08/26/20 16:58 Piperacillin Sodium/Tazobactam [Zosyn] 3.375 gm IV .STK-MED ONE 08/26/20 19:22 vancomycin HCL 1,000 mg .ROUTE .STK-MED ONE 08/26/20 20:09 clonazePAM [KlonoPIN] 0.5 mg PO ONCE ONE 08/26/20 21:01 Glucose, Whole Blood Routine 08/26/20 22:18 Piperacillin Sodium/Tazobactam [Zosyn] 3.375 gm IV .STK-MED ONE 08/27/20 03:48 Piperacillin Sodium/Tazobactam [Zosyn] 3.375 gm IV .STK-MED ONE 08/27/20 06:08 diphenhydrAMINE HCL [Benadryl] 25 mg IVPUSH ONCE ONE 08/27/20 06:45 Basic Metabolic Panel Routine Complete Blood Count Auto Diff Routine Vancomycin Trough Stat 08/27/20 07:42 Glucose, Whole Blood Routine 08/27/20 08:03 vancomycin HCL 1,000 mg .ROUTE .STK-MED ONE 08/27/20 10:01 Piperacillin Sodium/Tazobactam [Zosyn] 3.375 gm IV .STK-MED ONE 08/27/20 10:21 oxyCODONE HCl Immed Release [Roxicodone] 10 mg PO Q4H PRN 08/27/20 11:33 Glucose, Whole Blood Routine Laboratory Last Values WBC 11.1 X10*3/uL (4.8-10.8) H 08/27/20 06:45 RBC 2.96 X10*6/uL (4.20-5.50) L D 08/27/20 06:45 Hgb 7.4 g/dl (12.0-16.0) L D 08/27/20 06:45 Hct 26.1 % (37-47) L D 08/27/20 06:45 MCV 88.2 fL (80-98) 08/27/20 06:45 MCH 25.0 pg (27.0-33.0) L 08/27/20 06:45 MCHC 28.4 g/dl (31.0-35.0) L 08/27/20 06:45 RDW 15.2 % (11.0-16.0) 08/27/20 06:45 Plt Count 499 X10*3/uL (160-400) H D 08/27/20 06:45 MPV 9.2 fL (9.4-12.3) L 08/27/20 06:45 Immature Gran % (Auto) 0.5 % (0.0-0.4) H 08/27/20 06:45 Neut % (Auto) 78.8 % (45-73) H 08/27/20 06:45 Lymph % (Auto) 12.8 % (20-40) L 08/27/20 06:45 [place] % (Auto) 6.3 % (2-11) 08/27/20 06:45 Eos % (Auto) 1.2 % (0-4) 08/27/20 06:45 Baso % (Auto) 0.4 % (0-2) 08/27/20 06:45 Lymph # (Auto) 1.4 X10*3/uL (1.2-4.9) 08/27/20 06:45 [place] # (Auto) 0.7 X10*3/uL (0.1-1.2) 08/27/20 06:45 Eos # (Auto) 0.1 X10*3/uL (0.0-0.4) 08/27/20 06:45 Baso # (Auto) 0.0 X10*3/uL (0.0-0.2) 08/27/20 06:45 Abs Immat Gran (auto) 0.06 X10*3/uL (0.00-0.03) H 08/27/20 06:45 Absolute Neuts (auto) 8.7 X10*3/uL (2.0-8.3) H 08/27/20 06:45 Absolute Nucleated RBC 0.000 X10*3/uL (0.0-0.012) 08/27/20 06:45 Nucleated RBC % (auto) 0.0 /100WBC (0.0-0.2) 08/27/20 06:45 ESR 101 MM/HR (0-20) H 08/26/20 06:17 PT 15.9 SEC (10.8-13.0) H 08/25/20 19:42 INR 1.3 (0.9-1.1) H 08/25/20 19:42 APTT 45.8 SEC (24.1-38.0) H 08/25/20 19:42 Sodium 134 mmol/L (135-145) L 08/27/20 06:45 Potassium 4.4 mmol/l (3.3-5.1) 08/27/20 06:45 Chloride 108 mmol/L (96-108) 08/27/20 06:45 Carbon Dioxide 20 mmol/L (22-29) L 08/27/20 06:45 Anion Gap 10 (12-20) L 08/27/20 06:45 BUN 6 mg/dL (9-16) L 08/27/20 06:45 Creatinine 0.67 mg/dL (0.5-1.4) 08/27/20 06:45 Estim Creat Clear Calc 78.5 08/27/20 06:45 Estimated GFR > 60 08/27/20 06:45 POC Glucose 227 mg/dL (60-115) H 08/27/20 11:33 Random Glucose 286 mg/dL (60-115) H 08/27/20 06:45 Lactic Acid 1.3 mmol/L (0.5-2.0) 08/25/20 19:42 Calcium 7.8 mg/dL (8.4-10.2) L D 08/27/20 06:45 Total Bilirubin < 0.2 mg/dL (0.0-1.0) 08/25/20 19:42 AST 11 U/L (5-31) D 08/25/20 19:42 ALT 9 U/L (0-31) 08/25/20 19:42 Alkaline Phosphatase 212 U/L (39-117) H 08/25/20 19:42 C-Reactive Protein 5.67 mg/dL (< or = 0.50) H 08/26/20 06:17 Total Protein 8.0 g/dL (6.5-8.0) 08/25/20 19:42 Albumin 3.0 g/dL (3.5-5.0) L 08/25/20 19:42 Vancomycin Trough 16.7 mcg/mL (10.0-20.0) 08/27/20 06:45 COVID-19 (ADALID) Negative (Negative) 08/26/20 01:14 COVID-19 Clin Com See Note 08/26/20 01:14 Preliminary micro results at discharge 08/25/20 19:42 Blood Culture - Preliminary Blood - Venous No growth after 24 hours. 08/25/20 19:42 Blood Culture - Preliminary Blood - Venous No growth after 24 hours. Discharge Plan Discharge Patient Disposition: Left Against Medical Advice Referrals: [facility] [Other] Liset Sequeira MD [Physician] - (09/06/2020 FOLLOW UP AT 10:00 AM WITH YOUR PROVIDER. THIS WILL BE AN IN-PERSON APPOINTMENT.) Physician,Unknown [Primary Care Provider] - Discharge Medications: No Action lamotrigine [Lamictal] 200 mg Tablet 200 mg PO BEDTIME RF: 0 Lantus U-100 Insulin 100 unit/mL Solution 24 unit SUBCUT BEDTIME RF: 0 clopidogrel 75 mg Tablet 75 mg PO DAILY RF: 0 mirtazapine 15 mg Tablet 15 mg PO BEDTIME RF: 0 emtricitabine-tenofovir (TDF) [Truvada] 200-300 mg Tablet 1 tab PO DAILY RF: 0 potassium, sodium phosphates [Phos-NaK] 280-160-250 mg Powder In Packet 2 packet PO DAILY RF: 0 cholecalciferol (vitamin D3) 75 mcg (3,000 unit) Tablet 75 mcg PO DAILY RF: 0 pyridoxine (vitamin B6) 50 mg Tablet 50 mg PO DAILY RF: 0 zinc sulfate 220 mg Tablet 220 mg PO DAILY RF: 0 rifampin 300 mg Capsule 300 mg PO BID RF: 0 ascorbic acid (vitamin C) 500 mg Tablet 500 mg PO BID RF: 0 cephalexin 500 mg Capsule 500 mg PO BID RF: 0 ferrous sulfate 325 mg (65 mg iron) Tablet 325 mg PO BID RF: 0 Lactobacillus rhamnosus GG 10 billion cell Capsule 1 cap PO BID RF: 0 heparin (porcine) 5,000 unit/mL Syringe 5,000 unit subcut BID RF: 0 dolutegravir 50 mg Tablet 50 mg PO BID RF: 0 acetaminophen 325 mg Tablet 650 mg PO Q6H PRN (Reason: Fever Or Pain) RF: 0 clonazepam 0.5 mg Tablet 0.5 mg PO BID PRN (Reason: Anxiety) RF: 0 miconazole nitrate 2 % Powder 1 applic TOPICAL QSHIFT RF: 0 bisacodyl 10 mg Suppository 10 mg MD DAILY RF: 0 gabapentin 100 mg Capsule 100 mg PO TID RF: 0 insulin lispro [Humalog U-100 Insulin] 100 unit/mL Solution 1 sliding scale dose SUBCUT QIDACHS RF: 0 insulin lispro [Humalog U-100 Insulin] 100 unit/mL Solution 8 unit SUBCUT TID RF: 0 melatonin 10 mg Tablet 10 mg PO BEDTIME PRN (Reason: Sleep) RF: 0 magnesium hydroxide [Milk of Magnesia] 400 mg/5 mL Suspension 400 mg PO BEDTIME PRN (Reason: Constipation) RF: 0 polyethylene glycol 3350 [Miralax] 17 gram/dose Powder 17 g PO DAILY PRN (Reason: Constipation) RF: 0 albuterol sulfate [Ventolin HFA] 90 mcg/actuation Hfa Aerosol Inhaler 2 puff INHALATION Q6H PRN (Reason: Respiratory Distress) RF: 0 oxycodone 10 mg Tablet 10 mg PO Q4H PRN (Reason: Pain (Scale Score 4-6)) RF: 0 oxycodone 10 mg tablet 10 mg PO BID PRN (Reason: pain) Qty: 10 RF: 0 Discharge Orders: Discharge Order (Routine); Ordered 08/29/20 Ordered By: Trae Coughlin Patient Instructions: Osteomyelitis (ED) Stand Alone Forms: Against Medical Advice Discharge Date/Time: 08/27/20 16:08 Print Language: Sinhala Activity Restrictions/Additional Instructions: return to the ED immediately for fever, chills, worsening pain, nausea, vomiting, Worsening discharge, foul odor, increased redness, or any other concerning symptoms. YOU WILL NEED TO VISIT YOUR PCP FOR MEDICATION ADJUSTMENT AND MAINTENANCE ON 09/06/2020 @ 10 AM. [phone]. THIS WILL BE AN IN-PERSON VISIT AT THIS TIME, NO VISITING NURSE AGENCIES ARE OFFERING SERVICES IN THE HOME. Care Plan Goals: outpatient follow-up with primary care physician and Wound Care Clinic. Health Concerns: Need wound care and pain management plan as per [facility] Plan of Treatment: as above follow up with primary care for continued management of wound and chronic medical issues.
== END 2020-08-27 16:08 | disposition left against medical advice (07) | DRG 380 ==
LOC: HO.ED 08-26 02:33 → HO.S3 08-26 03:30
PROVIDERS: Physician Assistant; Admitting Provider Internal Medicine; Emergency Provider Emergency Medicine; Visit Provider Hospitalist
DX: E11.69 Type 2 diabetes mellitus with other specified complication (principal); L89.313 Pressure ulcer of right buttock, stage 3; L89.153 Pressure ulcer of sacral region, stage 3; E11.622 Type 2 diabetes mellitus with other skin ulcer; F11.20 Opioid dependence, uncomplicated; J45.909 Unspecified asthma, uncomplicated; M46.28 Osteomyelitis of vertebra, sacral and sacrococcygeal region; Z21 Asymptomatic human immunodeficiency virus [HIV] infection status; F32.9 Major depressive disorder, single episode, unspecified; Z20.828 Contact with and (suspected) exposure to other viral communicable diseases; F41.9 Anxiety disorder, unspecified; E78.5 Hyperlipidemia, unspecified; Z79.02 Long term (current) use of antithrombotics/antiplatelets; Z79.4 Long term (current) use of insulin; Z79.899 Other long term (current) drug therapy
CPT/HCPCS: 36415; 72192; 80048; 80053; 80202; 82947; 83605; 85025; 85610; 85652; 85730; 86140; 87040; 87635; 96361; 96365; 96367; 96375; 96376; 99284; 99285; J1170; J1200; J1650; J2270; J2543; J3370

== ENCOUNTER 2020-08-27 20:47 | Emergency (ER) | payer MEDICAID, SELFPAY ==
[2020-08-27 21:05] VITALS: BP 168/76; PULSE 88; PULSE 92; RESP 18; TEMP 36.8; O2SAT 95; O2SAT 96; BMI 20.2
--- NOTE | 2020-08-27 21:15 | ED_ITS ---
HPI - General Adult General Chief complaint: General Medical Stated complaint: BED SORES LOWER BACK X 2 Time Seen by Provider: 08/27/20 21:03 Source: patient Mode of arrival: EMS History of Present Illness HPI narrative: 49-year-old female with a history of sacral wound, osteomyelitis recently AMA from this hospital, which chief complaint of increased pain to sacral area. Patient states is having too much pain and came into the emergency department. Patient denies current fevers or chills. Denies recent falls. Denies nausea or vomiting. States has open sacral wounds and is supposed to be treated with antibiotics Onset (ago): day(s) Severity: severe Severity scale (1-10): 9 Quality: sharp and constant Pain Consistency: constant Relieving factors: medication Related Data Home Medications Medication Instructions Recorded Confirmed Lactobacillus rhamnosus GG 1 cap PO BID 08/26/20 08/26/20 acetaminophen 650 mg PO Q6H PRN 08/26/20 08/26/20 albuterol sulfate [Ventolin HFA] 2 puff INHALATION Q6H PRN 08/26/20 08/26/20 ascorbic acid (vitamin C) 500 mg PO BID 08/26/20 08/26/20 bisacodyl 10 mg FL DAILY 08/26/20 08/26/20 cephalexin 500 mg PO BID 08/26/20 08/26/20 cholecalciferol (vitamin D3) 75 mcg PO DAILY 08/26/20 08/26/20 clonazepam 0.5 mg PO BID PRN 08/26/20 08/26/20 clopidogrel 75 mg PO DAILY 08/26/20 08/26/20 dolutegravir 50 mg PO BID 08/26/20 08/26/20 emtricitabine-tenofovir (TDF) 1 tab PO DAILY 08/26/20 08/26/20 [Truvada] ferrous sulfate 325 mg PO BID 08/26/20 08/26/20 gabapentin 100 mg PO TID 08/26/20 08/26/20 heparin (porcine) 5,000 unit SUBCUT BID 08/26/20 08/26/20 insulin glargine [Lantus U-100 24 unit SUBCUT BEDTIME 08/26/20 08/26/20 Insulin] insulin lispro [Humalog U-100 1 sliding scale dose SUBCUT QIDACHS 08/26/20 08/26/20 Insulin] insulin lispro [Humalog U-100 8 unit SUBCUT TID 08/26/20 08/26/20 Insulin] lamotrigine [Lamictal] 200 mg PO BEDTIME 08/26/20 08/26/20 magnesium hydroxide [Milk of 400 mg PO BEDTIME PRN 08/26/20 08/26/20 Magnesia] melatonin 10 mg PO BEDTIME PRN 08/26/20 08/26/20 miconazole nitrate 1 applic TOPICAL QSHIFT 08/26/20 08/26/20 mirtazapine 15 mg PO BEDTIME 08/26/20 08/26/20 oxycodone 10 mg PO Q4H PRN 08/26/20 08/26/20 polyethylene glycol 3350 [Miralax] 17 g PO DAILY PRN 08/26/20 08/26/20 potassium, sodium phosphates 2 packet PO DAILY 08/26/20 08/26/20 [Phos-NaK] pyridoxine (vitamin B6) 50 mg PO DAILY 08/26/20 08/26/20 rifampin 300 mg PO BID 08/26/20 08/26/20 zinc sulfate 220 mg PO DAILY 08/26/20 08/26/20 Previous Rx's Medication Instructions Recorded oxycodone 10 mg PO BID PRN #10 tab 08/27/20 Allergies Allergy/AdvReac Type Severity Reaction Status Date / Time No Known Allergies Allergy Verified 08/25/20 18:23 Review of Systems Review of Systems: Constitutional : No Weight loss, No Fever, No Chills, No Night Sweats, No Fatigue, No Malaise ENT/Mouth : No Hearing loss, No Ear Pain, No Nasal Congestion, No Sinus Pain, No Hoarseness, No sore throat, No Rhinorrhea, No Swallowing Difficulty Eyes: No Eye Pain, No Swelling, No Redness, No Foreign Body, No Discharge, No Vision Changes Cardiovascular : No Chest Pain, No SOB, No Dyspnea on Exertion, No Orthopnea, No Edema, No Palpitations Respiratory : No Cough, No Sputum, No Wheezing, No Smoke Exposure, No Dyspnea Gastrointestinal : No Nausea, No Vomiting, No Diarrhea, No Constipation, No abdominal Pain, No Hematochezia, No Melena Genitourinary : no irregular bleeding, No Dysuria, No Urinary Frequency, No Hematuria, No Urinary Incontinence, No Urgency, No Flank Pain, No Urinary Flow Changes, No Hesitancy Musculoskeletal : No joint pain, No Myalgias, No Joint Swelling Skin : No Skin Lesions, No rash Neuro : No Weakness, No Numbness, No Paresthesias, No Loss of Consciousness, No Dizziness, No Headache Psych : No Anxiety/Panic, No Depression, No SI/HI/AH/VH, No Social Issues, Heme/Lymph: No Bruising, No Bleeding,No Lymphadenopathy Endocrine : No Polyuria, No Polydipsia, No Temperature Intolerance Back: Open wound to sacral area, x2. No active bleeding and no active discharge. No surrounding erythema. Healing almost closed wound to midback. No drainage no erythema no abscess noted PMFSH Past Medical History Medical History Asthma Diabetes History of osteomyelitis HIV (human immunodeficiency virus infection) HTN (hypertension) MSSA bacteremia Family History Family History (Updated 08/27/20 @ 21:18 by Dc East DO) Other Family history non-contributory Social History Social History Household Members: Family Housing: Apartment Alcohol intake: never Smoking Status: Current every day smoker Second Hand Smoke Exposure: Yes Advance Directives: No Advance Directives Information Provided: Yes Physical Exam Vital Signs: Vital Signs: Last Vital Signs Temp 98.3 F 08/27/20 21:05 Pulse 78 08/27/20 22:00 Resp 16 08/27/20 22:00 BP 96/51 L 08/27/20 22:00 Pulse Ox 98 08/27/20 22:00 Body Mass Index 20.2 Vital signs reviewed Appearance: Alert. Oriented X3. No acute distress. Eyes: Pupils equal, round and reactive to light. ENT: Pharynx normal. Neck: Normal inspection. Neck supple. No lymph nodes noted. No crepitus CVS: Normal heart rate and rhythm. Pulses normal. Normal S1 and S2 Respiratory: No respiratory distress. Breath sounds normal. No Wheezing. No rales Abdomen: Soft and nontender. No rigidity. No distention. good BS x4 Skin: Skin warm and dry. Normal skin color. Normal skin turgor. Extremities: No lower extremity edema. Neurovascular intact to all extremities. No Lacerations. No Rash Neuro: Oriented X 3. No motor deficit. No sensory deficit. Moving all extermities. No slurred speech. Back: Open sacral wound x2 to buttocks. No drainage. No surrounding erythema. No abscess noted. Please see pictures as per nursing staff. Third closing wound to mid back no surrounding erythema no drainage no abscess noted Course Course Course Narrative: Patient requesting multiple shots of Dilaudid. At this point patient exhibits no signs of sepsis nor infection. I spoke to hospitalist regarding patient was very familiar with her. Patient without acute symptoms for admission. In which the hospitalist agrees. Patient states does not want to go to [facility] or be admitted. Patient requesting pain medications and wants to go home. Reevaluation(s) Reevaluation #1: As per records. Infectious Disease states no IV antibiotics if negative blood cultures in which they are negative Medical Decision Making Medical Records Medical records reviewed: Yes I reviewed the patient's medical records. Medical records narrative: Medical records show recent discharge from this hospital. Patient was apparently diagnosed with sacral osteomyelitis and has been being treated by multiple hospitals. Came to this hospital several days ago with fever a shunt was admitted. At this point plan for infectious disease was to discontinue IV antibiotics and blood cultures were negative. This point I reviewed blood cultures and they have been negative. Patient AMA secondary to not obtaining pain medicine as per requested Lab Data Result diagrams: 08/27/20 21:28 08/27/20 21:28 Labs: Lab Results 08/27/20 08/27/20 08/27/20 Range/Units 21:28 21:28 21:28 WBC 13.4 H (4.8-10.8) X10*3/uL RBC 3.51 L (4.20-5.50) X10*6/uL Hgb 8.6 L (12.0-16.0) g/dl Hct 30.6 L (37-47) % MCV 87.2 (80-98) fL MCH 24.5 L (27.0-33.0) pg MCHC 28.1 L (31.0-35.0) g/dl RDW 15.1 (11.0-16.0) % Plt Count 598 H (160-400) X10*3/uL MPV 8.9 L (9.4-12.3) fL Immature Gran % (Auto) 0.3 (0.0-0.4) % Neut % (Auto) 84.2 H (45-73) % Lymph % (Auto) 9.6 L (20-40) % [place] % (Auto) 4.7 (2-11) % Eos % (Auto) 1.0 (0-4) % Baso % (Auto) 0.2 (0-2) % Lymph # (Auto) 1.3 (1.2-4.9) X10*3/uL [place] # (Auto) 0.6 (0.1-1.2) X10*3/uL Eos # (Auto) 0.1 (0.0-0.4) X10*3/uL Baso # (Auto) 0.0 (0.0-0.2) X10*3/uL Abs Immat Gran (auto) 0.04 H (0.00-0.03) X10*3/uL Absolute Neuts (auto) 11.3 H (2.0-8.3) X10*3/uL Absolute Nucleated RBC 0.000 (0.0-0.012) X10*3/uL Nucleated RBC % (auto) 0.0 (0.0-0.2) /100WBC Sodium 137 (135-145) mmol/L Potassium 5.3 H D (3.3-5.1) mmol/l Chloride 107 (96-108) mmol/L Carbon Dioxide 20 L (22-29) mmol/L Anion Gap 15 (12-20) BUN 7 L (9-16) mg/dL Creatinine 0.69 (0.5-1.4) mg/dL Estim Creat Clear Calc 76.2 Estimated GFR > 60 Random Glucose 359 H* (60-115) mg/dL Lactic Acid 1.1 (0.5-2.0) mmol/L Calcium 8.1 L (8.4-10.2) mg/dL Urine Color Urine Appearance Urine pH (5.0-8.0) Ur Specific [place] (1.005-1.025) Urine Protein (NEG-TRACE) MG/DL Urine Glucose (UA) (NEG) MG/DL Urine Ketones (NEG) MG/DL Urine Blood (NEG) Urine Nitrite (NEG) Ur Leukocyte Esterase (NEG) Urine RBC (0) /HPF Urine WBC (0-4) /HPF Ur Squamous Epith Cells /LPF Urine Bacteria /LPF 08/27/ Range/Units 21:59 WBC (4.8-10.8) X10*3/uL RBC (4.20-5.50) X10*6/uL Hgb (12.0-16.0) g/dl Hct (37-47) % MCV (80-98) fL MCH (27.0-33.0) pg MCHC (31.0-35.0) g/dl RDW (11.0-16.0) % Plt Count (160-400) X10*3/uL MPV (9.4-12.3) fL Immature Gran % (Auto) (0.0-0.4) % Neut % (Auto) (45-73) % Lymph % (Auto) (20-40) % [place] % (Auto) (2-11) % Eos % (Auto) (0-4) % Baso % (Auto) (0-2) % Lymph # (Auto) (1.2-4.9) X10*3/uL [place] # (Auto) (0.1-1.2) X10*3/uL Eos # (Auto) (0.0-0.4) X10*3/uL Baso # (Auto) (0.0-0.2) X10*3/uL Abs Immat Gran (auto) (0.00-0.03) X10*3/uL Absolute Neuts (auto) (2.0-8.3) X10*3/uL Absolute Nucleated RBC (0.0-0.012) X10*3/uL Nucleated RBC % (auto) (0.0-0.2) /100WBC Sodium (135-145) mmol/L Potassium (3.3-5.1) mmol/l Chloride (96-108) mmol/L Carbon Dioxide (22-29) mmol/L Anion Gap (12-20) BUN (9-16) mg/dL Creatinine (0.5-1.4) mg/dL Estim Creat Clear Calc Estimated GFR Random Glucose (60-115) mg/dL Lactic Acid (0.5-2.0) mmol/L Calcium (8.4-10.2) mg/dL Urine Color YELLOW Urine Appearance CLOUDY Urine pH 7.0 (5.0-8.0) Ur Specific [place] 1.015 (1.005-1.025) Urine Protein TRACE (NEG-TRACE) MG/DL Urine Glucose (UA) >=1000 H (NEG) MG/DL Urine Ketones 5 (NEG) MG/DL Urine Blood 3+ H (NEG) Urine Nitrite NEG (NEG) Ur Leukocyte Esterase 2+ H (NEG) Urine RBC 50-75 H (0) /HPF Urine WBC 15-29 H (0-4) /HPF Ur Squamous Epith Cells 1+ /LPF Urine Bacteria 1+ /LPF Discharge Plan Discharge Clinical Impression: Sacral decubitus ulcer Qualifiers: Pressure injury stage: stage 4 Qualified Code(s): L89.154 - Pressure ulcer of sacral region, stage 4 Patient Disposition: Home, Self-Care Instructions: Chronic Wounds (ED) Additional Instructions: Thank you for visiting the emergency department today. If your symptoms worsen or do not resolve completely please return to the emergency department immediate ly or call 911. if he have any questions please call your primary care physician Prescriptions: New oxycodone 10 mg tablet 10 mg PO BID PRN (Reason: pain) Qty: 10 RF: 0 No Action lamotrigine [Lamictal] 200 mg Tablet 200 mg PO BEDTIME RF: 0 Lantus U-100 Insulin 100 unit/mL Solution 24 unit SUBCUT BEDTIME RF: 0 clopidogrel 75 mg Tablet 75 mg PO DAILY RF: 0 mirtazapine 15 mg Tablet 15 mg PO BEDTIME RF: 0 emtricitabine-tenofovir (TDF) [Truvada] 200-300 mg Tablet 1 tab PO DAILY RF: 0 potassium, sodium phosphates [Phos-NaK] 280-160-250 mg Powder In Packet 2 packet PO DAILY RF: 0 cholecalciferol (vitamin D3) 75 mcg (3,000 unit) Tablet 75 mcg PO DAILY RF: 0 pyridoxine (vitamin B6) 50 mg Tablet 50 mg PO DAILY RF: 0 zinc sulfate 220 mg Tablet 220 mg PO DAILY RF: 0 rifampin 300 mg Capsule 300 mg PO BID RF: 0 ascorbic acid (vitamin C) 500 mg Tablet 500 mg PO BID RF: 0 cephalexin 500 mg Capsule 500 mg PO BID RF: 0 ferrous sulfate 325 mg (65 mg iron) Tablet 325 mg PO BID RF: 0 Lactobacillus rhamnosus GG 10 billion cell Capsule 1 cap PO BID RF: 0 heparin (porcine) 5,000 unit/mL Syringe 5,000 unit subcut BID RF: 0 dolutegravir 50 mg Tablet 50 mg PO BID RF: 0 acetaminophen 325 mg Tablet 650 mg PO Q6H PRN (Reason: Fever Or Pain) RF: 0 clonazepam 0.5 mg Tablet 0.5 mg PO BID PRN (Reason: Anxiety) RF: 0 miconazole nitrate 2 % Powder 1 applic TOPICAL QSHIFT RF: 0 bisacodyl 10 mg Suppository 10 mg FL DAILY RF: 0 gabapentin 100 mg Capsule 100 mg PO TID RF: 0 insulin lispro [Humalog U-100 Insulin] 100 unit/mL Solution 1 sliding scale dose SUBCUT QIDACHS RF: 0 insulin lispro [Humalog U-100 Insulin] 100 unit/mL Solution 8 unit SUBCUT TID RF: 0 melatonin 10 mg Tablet 10 mg PO BEDTIME PRN (Reason: Sleep) RF: 0 magnesium hydroxide [Milk of Magnesia] 400 mg/5 mL Suspension 400 mg PO BEDTIME PRN (Reason: Constipation) RF: 0 polyethylene glycol 3350 [Miralax] 17 gram/dose Powder 17 g PO DAILY PRN (Reason: Constipation) RF: 0 albuterol sulfate [Ventolin HFA] 90 mcg/actuation Hfa Aerosol Inhaler 2 puff INHALATION Q6H PRN (Reason: Respiratory Distress) RF: 0 oxycodone 10 mg Tablet 10 mg PO Q4H PRN (Reason: Pain (Scale Score 4-6)) RF: 0 Referrals: [facility] [Provider Group] - 2 days
[2020-08-27 21:34] LABS: MANUAL DIFF FLAG NO
[2020-08-27 21:38] LABS: Basophils Percent Auto 0.2 % (0-2); Eosinophils Absolute Auto 0.1 X10*3/uL (0.0-0.4); Hematocrit 30.6 % (37-47); Hemoglobin 8.6 g/dl (12.0-16.0); Imm Gran Abs Auto 0.04 X10*3/uL (0.00-0.03); Imm Gran Pct Auto 0.3 % (0.0-0.4); Lymphocytes Absolute Auto 1.3 X10*3/uL (1.2-4.9); Lymphocytes Percent Auto 9.6 % (20-40); Mean Corpuscular HGB Conc 28.1 g/dl (31.0-35.0); Mean Corpuscular Hemoglobin 24.5 pg (27.0-33.0); Mean Corpuscular Volume 87.2 fL (80-98); Mean Platelet Volume 8.9 fL (9.4-12.3); Monocytes Absolute Auto 0.6 X10*3/uL (0.1-1.2); Monocytes Percent Auto 4.7 % (2-11); Neutrophils Absolute Auto 11.3 X10*3/uL (2.0-8.3); Neutrophils Percent Auto 84.2 % (45-73); Platelet Count 598 X10*3/uL (160-400); Red Blood Count 3.51 X10*6/uL (4.20-5.50); Red Cell Distribution Width 15.1 % (11.0-16.0); White Blood Count 13.4 X10*3/uL (4.8-10.8)
[2020-08-27] MEDS: HYDROmorphone HCl 1 MG/ML SYRINGE IVPUSH ×2 (21:38→23:52)
[2020-08-27 22:00] VITALS: BP 96/51; PULSE 78; RESP 16; O2SAT 98
[2020-08-27 22:05] LABS: Lactic Acid 1.1 mmol/L (0.5-2.0)
[2020-08-27 22:12] LABS: Anion Gap 15 (12-20); Blood Urea Nitrogen 7 mg/dL (9-16); Calcium 8.1 mg/dL (8.4-10.2); Carbon Dioxide 20 mmol/L (22-29); Chloride 107 mmol/L (96-108); Creatinine Clr Calc Pharmacy 76.2; Estimated Glomerular Filt Rate > 60; Glucose Random 359 mg/dL (60-115); Potassium 5.3 mmol/l (3.3-5.1); Sodium 137 mmol/L (135-145)
[2020-08-27 22:19] LABS: Glucose Urine UA >=1000 MG/DL (NEG); Leukocyte Esterase Urine 2+ (NEG); Nitrite Urine NEG (NEG); Specific Gravity - Urine 1.015 (1.005-1.025); Urine Blood 3+ (NEG); Urine Ketones 5 MG/DL (NEG); Urine Protein TRACE MG/DL (NEG-TRACE)
[2020-08-27 22:26] LABS: Appearance Urine CLOUDY; Color Urine YELLOW
[2020-08-27 22:28] LABS: Bacteria Urine 1+ /LPF; RBC Urine 50-75 /HPF (0); Squamous Epithelial Cell Urine 1+ /LPF
[2020-08-27] MEDS: Insulin Regular, Human 100 UNIT/ML 3 ML VIAL IVPUSH (23:51)
[2020-08-27] MEDS: Sodium Polystyrene Sulfon/Sorb 15 GM/60 ML ORAL.SUSP PO (23:52)
[2020-08-28] VITALS: BP 105/71; PULSE 71; RESP 16; TEMP 36.9; O2SAT 98
== END 2020-08-28 00:12 | disposition home or self-care (01) ==
PROVIDERS: Emergency Provider Emergency Medicine
DX: L89.154 Pressure ulcer of sacral region, stage 4 (principal); M54.5 Low back pain; F17.200 Nicotine dependence, unspecified, uncomplicated; Z71.6 Tobacco abuse counseling; Z79.899 Other long term (current) drug therapy
CPT/HCPCS: 36415; 80048; 81001; 83605; 85025; 87040; 87086; 96374; 96375; 96376; 99284; J1170

== ENCOUNTER 2020-08-28 17:37 | Emergency (ER) | payer MEDICAID, SELFPAY ==
[2020-08-28 17:47] VITALS: BP 102/56; BP 120/80; PULSE 90; RESP 17; TEMP 36.9; O2SAT 100; BMI 20.2
--- NOTE | 2020-08-28 17:49 | ED.SKABFB ---
HPI - Skin/Abscess/Foreign Bdy General Chief complaint: General Medical Stated complaint: bed sores Time Seen by Provider: 08/28/20 17:47 Source: patient, EMS and old records reviewed Mode of arrival: EMS Limitations: no limitations History of Present Illness HPI narrative: c/o pain to sacral wounds, daughter hasn't been by to care for her only x 1 today, notes her daughter rotates her once a day, states the area is burning, there is stool in her ulcer on recent admit for acute osteomyelitis had two sets of neg blood cultures, plan was to DC IV antibiotics and switch to PO she left AMA per hospitalist note after the patient was switched to oral pain medications came in last night and did not require admit and refused rehab MD complaint: lesion Onset (ago): month(s) (several months since February) Tetanus up to date: no Location: back Severity: similar to previous episodes Quality: burning Pain Consistency: constant Relieving factors: none Exacerbating factors: none Associated symptoms: denies other symptoms Treatments prior to arrival: prescription analgesic (took two pills of oxycodone) Related Data Home Medications Medication Instructions Recorded Confirmed Lactobacillus rhamnosus GG 1 cap PO BID 08/26/20 08/26/20 acetaminophen 650 mg PO Q6H PRN 08/26/20 08/26/20 albuterol sulfate [Ventolin HFA] 2 puff INHALATION Q6H PRN 08/26/20 08/26/20 ascorbic acid (vitamin C) 500 mg PO BID 08/26/20 08/26/20 bisacodyl 10 mg OH DAILY 08/26/20 08/26/20 cephalexin 500 mg PO BID 08/26/20 08/26/20 cholecalciferol (vitamin D3) 75 mcg PO DAILY 08/26/20 08/26/20 clonazepam 0.5 mg PO BID PRN 08/26/20 08/26/20 clopidogrel 75 mg PO DAILY 08/26/20 08/26/20 dolutegravir 50 mg PO BID 08/26/20 08/26/20 emtricitabine-tenofovir (TDF) 1 tab PO DAILY 08/26/20 08/26/20 [Truvada] ferrous sulfate 325 mg PO BID 08/26/20 08/26/20 gabapentin 100 mg PO TID 08/26/20 08/26/20 heparin (porcine) 5,000 unit SUBCUT BID 08/26/20 08/26/20 insulin glargine [Lantus U-100 24 unit SUBCUT BEDTIME 08/26/20 08/26/20 Insulin] insulin lispro [Humalog U-100 1 sliding scale dose SUBCUT QIDACHS 08/26/20 08/26/20 Insulin] insulin lispro [Humalog U-100 8 unit SUBCUT TID 08/26/20 08/26/20 Insulin] lamotrigine [Lamictal] 200 mg PO BEDTIME 08/26/20 08/26/20 magnesium hydroxide [Milk of 400 mg PO BEDTIME PRN 08/26/20 08/26/20 Magnesia] melatonin 10 mg PO BEDTIME PRN 08/26/20 08/26/20 miconazole nitrate 1 applic TOPICAL QSHIFT 08/26/20 08/26/20 mirtazapine 15 mg PO BEDTIME 08/26/20 08/26/20 oxycodone 10 mg PO Q4H PRN 08/26/20 08/26/20 polyethylene glycol 3350 [Miralax] 17 g PO DAILY PRN 08/26/20 08/26/20 potassium, sodium phosphates 2 packet PO DAILY 08/26/20 08/26/20 [Phos-NaK] pyridoxine (vitamin B6) 50 mg PO DAILY 08/26/20 08/26/20 rifampin 300 mg PO BID 08/26/20 08/26/20 zinc sulfate 220 mg PO DAILY 08/26/20 08/26/20 Previous Rx's Medication Instructions Recorded oxycodone 10 mg PO BID PRN #10 tab 08/27/20 Allergies Allergy/AdvReac Type Severity Reaction Status Date / Time No Known Allergies Allergy Verified 08/25/20 18:23 Review of Systems Review of Systems: Constitutional : No Fever, No Chills ENT/Mouth : No sore throat, No Rhinorrhea Eyes: No Eye Pain, No Swelling, No Redness Cardiovascular : No Chest Pain, No SOB Respiratory : No Cough, No Sputum Gastrointestinal : No Nausea, No Vomiting, No Diarrhea, No abdominal Pain Genitourinary : No Dysuria, No Hematuria Musculoskeletal : No joint pain, No Myalgias, No Joint Swelling Skin : pos Skin Lesions, positive skin rash Neuro : No Weakness, No Numbness, No Headache Psych : No Anxiety, No Depression Heme/Lymph: No Bruising, No Bleeding,No Lymphadenopathy Endocrine : No Polyuria, No Polydipsia All other systems reviewed and are negative PMFSH Past Medical History Attestation statement: The following information was validated with the patient. Medical History Asthma Diabetes History of osteomyelitis HIV (human immunodeficiency virus infection) HTN (hypertension) MSSA bacteremia Family History Family History (Updated 08/27/20 @ 21:18 by Dc East DO) Other Family history non-contributory Social History Social History Household Members: Family Housing: Apartment Alcohol intake: never Smoking Status: Current every day smoker Smoked in Last 30 Days: No Second Hand Smoke Exposure: Yes Use of substances other than those prescribed or required for medical reasons: No Any prior treatment program specific to substance use: No Advance Directives: No Advance Directives Information Provided: Yes Physical Exam Vital Signs: Vital Signs: Last Vital Signs Temp 98.1 F 08/28/20 22:53 Pulse 110 H 08/28/20 23:28 Resp 20 08/28/20 23:28 BP 90/57 L 08/28/20 23:28 Pulse Ox 96 08/28/20 22:53 Body Mass Index 20.2 Appearance: Alert. Oriented X3. No acute distress. Anxious, moaning out loud Eyes: Pupils equal, round and reactive to light. ENT: Pharynx normal. Neck: Normal inspection. Neck supple. CVS: Normal heart rate and rhythm. Pulses normal. Respiratory: No respiratory distress. Breath sounds normal. Abdomen: Soft and nontender. Back: large deep sacral ulcers down to bone - covered in wet brown feces, no signs of infection but areas are significantly contaminated with stool Skin: Skin warm and dry. Normal skin color. Normal skin turgor. Extremities: No lower extremity edema. No calf ttp Neuro: Oriented X 3. paraplegic Course Course Course Narrative: labs stable, CT scan shows possible perinephric stranding, UA yesterday underwhelming, man was changed yesterday, patient repeatedly asking for IV dilaudid and refusing PO oxycodone for pain, urine culture prelim 10 to 50,000 of yeast will repeat UA, no prior renal studies since March given UA at this time will start antibiotics for possible infection 1113pm I have tried to talk to the patient about rehab and trying oral pain control, she will not engage in conversation and only wants IV dilaudid it's the only thing that helps she is aware that is not the plan of care unless she needs it for dressing changes, the patient will not discuss further and continues to ask myself and her RN for IV dilaudid refuses all other pain control options. MDM - Skin/Abscess/Foreign Bdy MDM Narrative Medical decision making narrative: 50 yo female with hx of paraplegia, HIV, DM, chronic sacral ulcers - just admitted for possible osteo - left AMA after pain medications were adjusted here c/o pain again at this time will repeat labs, CT scan, IM medications, offere rehab and labs appear chronic Lab Data Result diagrams: 08/28/20 19:11 08/28/20 19:11 Labs: Lab Results 08/28/20 08/28/20 08/28/20 Range/Units 19:11 19:11 19:11 WBC 12.5 H (4.8-10.8) X10*3/uL RBC 3.41 L (4.20-5.50) X10*6/uL Hgb 8.5 L (12.0-16.0) g/dl Hct 29.8 L (37-47) % MCV 87.4 (80-98) fL MCH 24.9 L (27.0-33.0) pg MCHC 28.5 L (31.0-35.0) g/dl RDW 15.1 (11.0-16.0) % Plt Count 534 H (160-400) X10*3/uL MPV 9.5 (9.4-12.3) fL Immature Gran % (Auto) 0.5 H (0.0-0.4) % Neut % (Auto) 85.3 H (45-73) % Lymph % (Auto) 9.0 L (20-40) % [place] % (Auto) 4.1 (2-11) % Eos % (Auto) 0.9 (0-4) % Baso % (Auto) 0.2 (0-2) % Lymph # (Auto) 1.1 L (1.2-4.9) X10*3/uL [place] # (Auto) 0.5 (0.1-1.2) X10*3/uL Eos # (Auto) 0.1 (0.0-0.4) X10*3/uL Baso # (Auto) 0.0 (0.0-0.2) X10*3/uL Abs Immat Gran (auto) 0.06 H (0.00-0.03) X10*3/uL Absolute Neuts (auto) 10.7 H (2.0-8.3) X10*3/uL Absolute Nucleated RBC 0.000 (0.0-0.012) X10*3/uL Nucleated RBC % (auto) 0.0 (0.0-0.2) /100WBC Hold Blue Top SEE NOTE Sodium 138 (135-145) mmol/L Potassium 4.1 D (3.3-5.1) mmol/l Chloride 107 (96-108) mmol/L Carbon Dioxide 23 (22-29) mmol/L Anion Gap 12 (12-20) BUN 5 L (9-16) mg/dL Creatinine 0.63 (0.5-1.4) mg/dL Estim Creat Clear Calc 83.6 Estimated GFR > 60 Random Glucose 473 H* (60-115) mg/dL Lactic Acid (0.5-2.0) mmol/L Calcium 7.9 L (8.4-10.2) mg/dL Urine Color Urine Appearance Urine pH (5.0-8.0) Ur Specific [place] (1.005-1.025) Urine Protein (NEG-TRACE) MG/DL Urine Glucose (UA) (NEG) MG/DL Urine Ketones (NEG) MG/DL Urine Blood (NEG) Urine Nitrite (NEG) Ur Leukocyte Esterase (NEG) Urine RBC (0) /HPF Urine WBC (0-4) /HPF Ur Squamous Epith Cells /LPF Urine Bacteria /LPF Urine Yeast /HPF 08/28/20 08/28/20 Range/Units 19:11 22:50 WBC (4.8-10.8) X10*3/uL RBC (4.20-5.50) X10*6/uL Hgb (12.0-16.0) g/dl Hct (37-47) % MCV (80-98) fL MCH (27.0-33.0) pg MCHC (31.0-35.0) g/dl RDW (11.0-16.0) % Plt Count (160-400) X10*3/uL MPV (9.4-12.3) fL Immature Gran % (Auto) (0.0-0.4) % Neut % (Auto) (45-73) % Lymph % (Auto) (20-40) % [place] % (Auto) (2-11) % Eos % (Auto) (0-4) % Baso % (Auto) (0-2) % Lymph # (Auto) (1.2-4.9) X10*3/uL [place] # (Auto) (0.1-1.2) X10*3/uL Eos # (Auto) (0.0-0.4) X10*3/uL Baso # (Auto) (0.0-0.2) X10*3/uL Abs Immat Gran (auto) (0.00-0.03) X10*3/uL Absolute Neuts (auto) (2.0-8.3) X10*3/uL Absolute Nucleated RBC (0.0-0.012) X10*3/uL Nucleated RBC % (auto) (0.0-0.2) /100WBC Hold Blue Top Sodium (135-145) mmol/L Potassium (3.3-5.1) mmol/l Chloride (96-108) mmol/L Carbon Dioxide (22-29) mmol/L Anion Gap (12-20) BUN (9-16) mg/dL Creatinine (0.5-1.4) mg/dL Estim Creat Clear Calc Estimated GFR Random Glucose (60-115) mg/dL Lactic Acid 1.0 (0.5-2.0) mmol/L Calcium (8.4-10.2) mg/dL Urine Color YELLOW Urine Appearance TURBID Urine pH 6.5 (5.0-8.0) Ur Specific [place] <= 1.005 (1.005-1.025) Urine Protein TRACE (NEG-TRACE) MG/DL Urine Glucose (UA) 500 H (NEG) MG/DL Urine Ketones NEG (NEG) MG/DL Urine Blood 2+ H (NEG) Urine Nitrite NEG (NEG) Ur Leukocyte Esterase 2+ H (NEG) Urine RBC 5-9 H (0) /HPF Urine WBC TNTC H (0-4) /HPF Ur Squamous Epith Cells NONE /LPF Urine Bacteria 1+ /LPF Urine Yeast 3+ /HPF Discharge Plan Discharge Clinical Impression: Chronic ulcer of sacral region, UTI (urinary tract infection) due to urinary indwelling Man catheter Prescriptions: No Action lamotrigine [Lamictal] 200 mg Tablet 200 mg PO BEDTIME RF: 0 Lantus U-100 Insulin 100 unit/mL Solution 24 unit SUBCUT BEDTIME RF: 0 clopidogrel 75 mg Tablet 75 mg PO DAILY RF: 0 mirtazapine 15 mg Tablet 15 mg PO BEDTIME RF: 0 emtricitabine-tenofovir (TDF) [Truvada] 200-300 mg Tablet 1 tab PO DAILY RF: 0 potassium, sodium phosphates [Phos-NaK] 280-160-250 mg Powder In Packet 2 packet PO DAILY RF: 0 cholecalciferol (vitamin D3) 75 mcg (3,000 unit) Tablet 75 mcg PO DAILY RF: 0 pyridoxine (vitamin B6) 50 mg Tablet 50 mg PO DAILY RF: 0 zinc sulfate 220 mg Tablet 220 mg PO DAILY RF: 0 rifampin 300 mg Capsule 300 mg PO BID RF: 0 ascorbic acid (vitamin C) 500 mg Tablet 500 mg PO BID RF: 0 cephalexin 500 mg Capsule 500 mg PO BID RF: 0 ferrous sulfate 325 mg (65 mg iron) Tablet 325 mg PO BID RF: 0 Lactobacillus rhamnosus GG 10 billion cell Capsule 1 cap PO BID RF: 0 heparin (porcine) 5,000 unit/mL Syringe 5,000 unit subcut BID RF: 0 dolutegravir 50 mg Tablet 50 mg PO BID RF: 0 acetaminophen 325 mg Tablet 650 mg PO Q6H PRN (Reason: Fever Or Pain) RF: 0 clonazepam 0.5 mg Tablet 0.5 mg PO BID PRN (Reason: Anxiety) RF: 0 miconazole nitrate 2 % Powder 1 applic TOPICAL QSHIFT RF: 0 bisacodyl 10 mg Suppository 10 mg OH DAILY RF: 0 gabapentin 100 mg Capsule 100 mg PO TID RF: 0 insulin lispro [Humalog U-100 Insulin] 100 unit/mL Solution 1 sliding scale dose SUBCUT QIDACHS RF: 0 insulin lispro [Humalog U-100 Insulin] 100 unit/mL Solution 8 unit SUBCUT TID RF: 0 melatonin 10 mg Tablet 10 mg PO BEDTIME PRN (Reason: Sleep) RF: 0 magnesium hydroxide [Milk of Magnesia] 400 mg/5 mL Suspension 400 mg PO BEDTIME PRN (Reason: Constipation) RF: 0 polyethylene glycol 3350 [Miralax] 17 gram/dose Powder 17 g PO DAILY PRN (Reason: Constipation) RF: 0 albuterol sulfate [Ventolin HFA] 90 mcg/actuation Hfa Aerosol Inhaler 2 puff INHALATION Q6H PRN (Reason: Respiratory Distress) RF: 0 oxycodone 10 mg Tablet 10 mg PO Q4H PRN (Reason: Pain (Scale Score 4-6)) RF: 0 oxycodone 10 mg tablet 10 mg PO BID PRN (Reason: pain) Qty: 10 RF: 0
--- NOTE | 2020-08-28 17:52 | CT_ITS ---
EXAMINATION: CT PELVIS WITH CONTRAST CLINICAL INFORMATION: Severe pain with sacral ulcers. COMPARISON: CT pelvis 3 days ago. TECHNIQUE: Helical scanning was performed with submillimeter collimation through the pelvis with the use of oral contrast and during bolus intravenous injection of 85 mL of Omnipaque 350 intravenous contrast. Sagittal and coronal multiplanar 2-D reconstructions were obtained. This CT examination was performed using dose optimization techniques as appropriate, variously including the following: *Automated exposure control *Adjustment of mA and/or kV according to patient size (this includes techniques or standardized protocols for targeted exams where dose is matched to indication/reason for exam; i.e. extremities or head) *Use of iterative reconstruction technique DLP: 173 mGy-cm FINDINGS: PELVIS: Since the prior exam of 3 days ago there has been little significant interval change. Again noted are chronic pelvic fractures involving the pubic rami/pubic symphysis. Redemonstration of a left sacral fracture in similar anatomic alignment without change compared to the study from 3 days ago. Again seen is marked skin erosion/ulceration with sacral erosion consistent with osteomyelitis. A new finding compared with the study 3 days ago is the presence of tiny air bubbles seen within the bone possibly indicating worsening of infection (series 3 image 191). Again seen is a Burnham catheter in the bladder with a partially visualized right internally dwelling double-J ureteral stent. A new right-sided perinephric fluid collection appears to be present and is only partially visualized on this pelvic CT. CT/CT pelvis w con IMPRESSION: Large sacral decubitus ulcer with associated erosion of bone. Since the study 2 days ago some new tiny air bubbles are present within the bone which could indicate worsening of infection. Chronic unchanged left sacral and pelvic fractures. New right lower pole perinephric fluid collection, only partially visualized. An internally dwelling right ureteral double-J stent is present.
[2020-08-28] MEDS: HYDROmorphone HCl 2 MG/ML VIAL IM (18:00)
--- NOTE | 2020-08-28 18:16 | PC.NURSE ---
this rn and rn angelina to bedside. pt cleaned up and wounds cleaned to best ability. wet to dry dressing applied for now for patient comfort. pt positioned on left side.
[2020-08-28 19:24] LABS: Basophils Percent Auto 0.2 % (0-2); Eosinophils Absolute Auto 0.1 X10*3/uL (0.0-0.4); Eosinophils Percent Auto 0.9 % (0-4); Hematocrit 29.8 % (37-47); Hemoglobin 8.5 g/dl (12.0-16.0); Imm Gran Abs Auto 0.06 X10*3/uL (0.00-0.03); Imm Gran Pct Auto 0.5 % (0.0-0.4); Lymphocytes Absolute Auto 1.1 X10*3/uL (1.2-4.9); MANUAL DIFF FLAG NO; Mean Corpuscular HGB Conc 28.5 g/dl (31.0-35.0); Mean Corpuscular Hemoglobin 24.9 pg (27.0-33.0); Mean Corpuscular Volume 87.4 fL (80-98); Mean Platelet Volume 9.5 fL (9.4-12.3); Monocytes Absolute Auto 0.5 X10*3/uL (0.1-1.2); Monocytes Percent Auto 4.1 % (2-11); Neutrophils Absolute Auto 10.7 X10*3/uL (2.0-8.3); Neutrophils Percent Auto 85.3 % (45-73); Platelet Count 534 X10*3/uL (160-400); Red Blood Count 3.41 X10*6/uL (4.20-5.50); Red Cell Distribution Width 15.1 % (11.0-16.0); White Blood Count 12.5 X10*3/uL (4.8-10.8)
[2020-08-28 20:04] LABS: Anion Gap 12 (12-20); Blood Urea Nitrogen 5 mg/dL (9-16); Calcium 7.9 mg/dL (8.4-10.2); Carbon Dioxide 23 mmol/L (22-29); Chloride 107 mmol/L (96-108); Creatinine Clr Calc Pharmacy 83.6; Estimated Glomerular Filt Rate > 60; Glucose Random 473 mg/dL (60-115); Potassium 4.1 mmol/l (3.3-5.1); Sodium 138 mmol/L (135-145)
[2020-08-28] MEDS: Insulin Lispro 100 UNIT/ML 3 ML VIAL SUBCUT (20:22)
[2020-08-28] MEDS: iohexoL 350 MG/ML 100 ML INFUS..BTL IV (20:23)
[2020-08-28 20:37] VITALS: BP 119/65; PULSE 73; RESP 18; TEMP 36.9; O2SAT 99
--- NOTE | 2020-08-28 20:44 | PC.NURSE ---
pt refusing po pain medications and requesting dilaudid, provider notified and this nurse told the patient that the provider is not ordering dilaudid and she can either take the po medication or not take the med at all, patient is currently eating dinner provided to her and she said she will let us know after she eats if she will take the med or not.
--- NOTE | 2020-08-28 21:15 | CT_ITS ---
EXAMINATION: CT ABDOMEN AND PELVIS WITHOUT CONTRAST CLINICAL INFORMATION: Perinephric fluid collection evaluation COMPARISON: Same day pelvic CT, renal ultrasound 03/18/[address] abdomen pelvis with lower extremity runoff 03/12/2020 TECHNIQUE: Multidetector volumetric imaging was performed from the superior aspect of the liver through the pubic symphysis. Sagittal and coronal reformatted images were obtained on the technologist's workstation. This CT examination was performed using dose optimization techniques as appropriate, variously including the following: *Automated exposure control *Adjustment of mA and/or kV according to patient size (this includes techniques or standardized protocols for targeted exams where dose is matched to indication/reason for exam; i.e. extremities or head) *Use of iterative reconstruction technique DLP: 448 mGy-cm FINDINGS: Visualized lung bases demonstrate mild dependent atelectasis. The liver demonstrates normal size, contour and attenuation. The gallbladder is not visualized and presumed to be surgically absent. The pancreas and spleen are unremarkable. Mild hypertrophy of the bilateral adrenal glands is noted. Symmetrically sized kidneys. There is no hydronephrosis bilaterally. The right-sided internal ureteral stent is noted in expected orientation. Mild bilateral perinephric stranding is noted with trace perinephric stranding around the inferior pole of the right kidney. No well organized fluid collection identified. A few hypodensities within both kidneys are too small to accurately characterize. Debris-filled stomach. Normal caliber loops of small and large bowel. Unremarkable anastomotic suture line within the left mid abdomen. There is a mild stool burden throughout the colon. Nonaneurysmal abdominal aorta. The bladder is decompressed around a Burnham catheter and therefore not accurately evaluated. Air within the bladder is felt to be iatrogenic. Unremarkable CT appearance of the uterus. Imaging findings of the sacral decubitus ulcer with bony erosion are unchanged from imaging 1 ago. Extensive pelvic fractures again noted.. CT/CT abdomen pelvis wo con IMPRESSION: 1. Mild bilateral perinephric stranding is noted with trace perinephric stranding around the inferior pole of the right kidney. No well organized fluid collection identified. 2. Similar pelvic findings from imaging 1 hour ago.
[2020-08-28 22:53] VITALS: BP 90/50; PULSE 78; RESP 18; TEMP 36.7; O2SAT 96
[2020-08-28 22:58] LABS: Glucose Urine UA 500 MG/DL (NEG); Leukocyte Esterase Urine 2+ (NEG); Nitrite Urine NEG (NEG); PH 6.5 (5.0-8.0); Specific Gravity - Urine <= 1.005 (1.005-1.025); Urine Blood 2+ (NEG); Urine Ketones NEG (NEG); Urine Protein TRACE MG/DL (NEG-TRACE)
[2020-08-28 22:59] LABS: Appearance Urine TURBID; Color Urine YELLOW
--- NOTE | 2020-08-28 23:02 | PC.NURSE ---
patient a&ox3, pt bp to lt arm 80/48 on lt with automatic, 83/50 to rt automatic, repeated with manual pt bp was 90/50, patient remains alert and oriented, continues to refuses pain meds ordered
[2020-08-28 23:10] LABS: Bacteria Urine 1+ /LPF; WBC Urine TNTC /HPF (0-4)
[2020-08-28] MEDS: 0.9 % Sodium Chloride 1,000 ML 999 ML IVCONT ×2 (23:17→23:21)
[2020-08-28 23:28] VITALS: BP 90/57; PULSE 110; RESP 20
[2020-08-28] MEDS: cefTRIAXone sodium 1 GM in 0.9 % Sodium Chloride 50 ML IV (23:28)
[2020-08-29] VITALS (11 sets, daily range): BP systolic 101–170; BP diastolic 59–88; PULSE 14–98; RESP 14–18; TEMP 36.6–37.3; O2SAT 99–100
[2020-08-29] MEDS: oxyCODONE HCl Immed Release 5 MG TABLET 10 MG PO ×2 (00:44→09:35)
[2020-08-29] MEDS: Haloperidol Lactate 5 MG/ML VIAL IM (01:08)
--- NOTE | 2020-08-29 01:15 | PC.NURSE ---
PT REMAINS VERY FIXATED ON IV DILAUDID. HAS BEEN OFFERED PO DILAUDID, IV FENTANYL, BENADRYL AND HAS NOW AGREED TO IM HALDOL TO HELP CALM AND ALLOW THE PO OXYCODONE TO TAKE EFFECT. PT IS NOW PT/CM EVAL.
[2020-08-29] MEDS: diphenhydrAMINE HCL 50 MG/ML VIAL 25 MG IVPUSH (01:41)
--- NOTE | 2020-08-29 04:53 | PC.NURSE ---
Pt awake, requesting water and provided with a pitcher of water.
--- NOTE | 2020-08-29 07:37 | ED_ITS ---
HPI - General Adult General Chief complaint: General Medical Stated complaint: bed sores Time Seen by Provider: 08/28/20 17:47 Source: patient, EMS and old records reviewed Mode of arrival: EMS Limitations: no limitations Related Data Home Medications Medication Instructions Recorded Confirmed Lactobacillus rhamnosus GG 1 cap PO BID 08/26/20 08/29/20 acetaminophen 650 mg PO Q6H PRN 08/26/20 08/29/20 albuterol sulfate [Ventolin HFA] 2 puff INHALATION Q6H PRN 08/26/20 08/29/20 ascorbic acid (vitamin C) 500 mg PO BID 08/26/20 08/29/20 bisacodyl 10 mg [place] DAILY 08/26/20 08/29/20 cephalexin 500 mg PO BID 08/26/20 08/29/20 cholecalciferol (vitamin D3) 75 mcg PO DAILY 08/26/20 08/29/20 clonazepam 0.5 mg PO BID PRN 08/26/20 08/29/20 clopidogrel 75 mg PO DAILY 08/26/20 08/29/20 dolutegravir 50 mg PO BID 08/26/20 08/29/20 emtricitabine-tenofovir (TDF) 1 tab PO DAILY 08/26/20 08/29/20 [Truvada] ferrous sulfate 325 mg PO BID 08/26/20 08/29/20 gabapentin 100 mg PO TID 08/26/20 08/29/20 heparin (porcine) 5,000 unit SUBCUT BID 08/26/20 08/29/20 insulin glargine [Lantus U-100 24 unit SUBCUT BEDTIME 08/26/20 08/29/20 Insulin] insulin lispro [Humalog U-100 1 sliding scale dose SUBCUT QIDACHS 08/26/20 08/29/20 Insulin] insulin lispro [Humalog U-100 8 unit SUBCUT TID 08/26/20 08/29/20 Insulin] lamotrigine [Lamictal] 200 mg PO BEDTIME 08/26/20 08/29/20 magnesium hydroxide [Milk of 400 mg PO BEDTIME PRN 08/26/20 08/29/20 Magnesia] melatonin 10 mg PO BEDTIME PRN 08/26/20 08/29/20 miconazole nitrate 1 applic TOPICAL QSHIFT 08/26/20 08/29/20 mirtazapine 15 mg PO BEDTIME 08/26/20 08/29/20 oxycodone 10 mg PO Q4H PRN 08/26/20 08/29/20 polyethylene glycol 3350 [Miralax] 17 g PO DAILY PRN 08/26/20 08/29/20 potassium, sodium phosphates 2 packet PO DAILY 08/26/20 08/29/20 [Phos-NaK] pyridoxine (vitamin B6) 50 mg PO DAILY 08/26/20 08/29/20 rifampin 300 mg PO BID 08/26/20 08/29/20 zinc sulfate 220 mg PO DAILY 08/26/20 08/29/20 Previous Rx's Medication Instructions Recorded oxycodone 10 mg PO BID PRN #10 tab 08/27/20 Allergies Allergy/AdvReac Type Severity Reaction Status Date / Time No Known Allergies Allergy Verified 08/25/20 18:23 [facility] Past Medical History Medical History Asthma Diabetes History of osteomyelitis HIV (human immunodeficiency virus infection) HTN (hypertension) MSSA bacteremia Family History Family History (Updated 08/27/20 @ 21:18 by Dc East DO) Other Family history non-contributory Social History Social History Household Members: Family Housing: Apartment Alcohol intake: never Smoking Status: Current every day smoker Smoked in Last 30 Days: No Second Hand Smoke Exposure: Yes Use of substances other than those prescribed or required for medical reasons: No Any prior treatment program specific to substance use: No Advance Directives: No Advance Directives Information Provided: Yes Physical Exam Vital Signs: Vital Signs: Last Vital Signs Temp 99.2 F 08/29/20 09:30 Pulse 89 08/29/20 09:30 Resp 16 08/29/20 09:30 BP 119/70 08/29/20 09:30 Pulse Ox 100 08/29/20 09:30 Body Mass Index 20.2 Medical Decision Making MDM Narrative Medical decision making narrative: Patient initially seen by case management. Given patient is paralyzed with a large ulcer. Attempted to place patient into a rehab facility. However patient does not want to stay in the hospital given his Thanksgiving. Patient understands that she needs additional care. Will attempt to contact Case Management again to maximize patient's care at home. Patient is told risk of deterioration exists. Risk of worsening ulcers exists. Risk of exists. Patient left against medical advice. Lab Data Result diagrams: 08/28/20 19:11 08/28/20 19:11 Labs: Lab Results 08/28/20 08/28/20 08/28/20 Range/Units 19:11 19:11 19:11 WBC 12.5 H (4.8-10.8) X10*3/uL RBC 3.41 L (4.20-5.50) X10*6/uL Hgb 8.5 L (12.0-16.0) g/dl Hct 29.8 L (37-47) % MCV 87.4 (80-98) fL MCH 24.9 L (27.0-33.0) pg MCHC 28.5 L (31.0-35.0) g/dl RDW 15.1 (11.0-16.0) % Plt Count 534 H (160-400) X10*3/uL MPV 9.5 (9.4-12.3) fL Immature Gran % (Auto) 0.5 H (0.0-0.4) % Neut % (Auto) 85.3 H (45-73) % Lymph % (Auto) 9.0 L (20-40) % Woodward % (Auto) 4.1 (2-11) % Eos % (Auto) 0.9 (0-4) % Baso % (Auto) 0.2 (0-2) % Lymph # (Auto) 1.1 L (1.2-4.9) X10*3/uL Woodward # (Auto) 0.5 (0.1-1.2) X10*3/uL Eos # (Auto) 0.1 (0.0-0.4) X10*3/uL Baso # (Auto) 0.0 (0.0-0.2) X10*3/uL Abs Immat Gran (auto) 0.06 H (0.00-0.03) X10*3/uL Absolute Neuts (auto) 10.7 H (2.0-8.3) X10*3/uL Absolute Nucleated RBC 0.000 (0.0-0.012) X10*3/uL Nucleated RBC % (auto) 0.0 (0.0-0.2) /100WBC Hold Blue Top SEE NOTE Sodium 138 (135-145) mmol/L Potassium 4.1 D (3.3-5.1) mmol/l Chloride 107 (96-108) mmol/L Carbon Dioxide 23 (22-29) mmol/L Anion Gap 12 (12-20) BUN 5 L (9-16) mg/dL Creatinine 0.63 (0.5-1.4) mg/dL Estim Creat Clear Calc 83.6 Estimated GFR > 60 POC Glucose (60-115) mg/dL Random Glucose 473 H* (60-115) mg/dL Lactic Acid (0.5-2.0) mmol/L Calcium 7.9 L (8.4-10.2) mg/dL Urine Color Urine Appearance Urine pH (5.0-8.0) Ur Specific Acton (1.005-1.025) Urine Protein (NEG-TRACE) MG/DL Urine Glucose (UA) (NEG) MG/DL Urine Ketones (NEG) MG/DL Urine Blood (NEG) Urine Nitrite (NEG) Ur Leukocyte Esterase (NEG) Urine RBC (0) /HPF Urine WBC (0-4) /HPF Ur Squamous Epith Cells /LPF Urine Bacteria /LPF Urine Yeast /HPF 08/28/20 08/28/20 08/29/20 Range/Units 19:11 22:50 07:29 WBC (4.8-10.8) X10*3/uL RBC (4.20-5.50) X10*6/uL Hgb (12.0-16.0) g/dl Hct (37-47) % MCV (80-98) fL MCH (27.0-33.0) pg MCHC (31.0-35.0) g/dl RDW (11.0-16.0) % Plt Count (160-400) X10*3/uL MPV (9.4-12.3) fL Immature Gran % (Auto) (0.0-0.4) % Neut % (Auto) (45-73) % Lymph % (Auto) (20-40) % Woodward % (Auto) (2-11) % Eos % (Auto) (0-4) % Baso % (Auto) (0-2) % Lymph # (Auto) (1.2-4.9) X10*3/uL Woodward # (Auto) (0.1-1.2) X10*3/uL Eos # (Auto) (0.0-0.4) X10*3/uL Baso # (Auto) (0.0-0.2) X10*3/uL Abs Immat Gran (auto) (0.00-0.03) X10*3/uL Absolute Neuts (auto) (2.0-8.3) X10*3/uL Absolute Nucleated RBC (0.0-0.012) X10*3/uL Nucleated RBC % (auto) (0.0-0.2) /100WBC Hold Blue Top Sodium (135-145) mmol/L Potassium (3.3-5.1) mmol/l Chloride (96-108) mmol/L Carbon Dioxide (22-29) mmol/L Anion Gap (12-20) BUN (9-16) mg/dL Creatinine (0.5-1.4) mg/dL Estim Creat Clear Calc Estimated GFR POC Glucose 455 H* (60-115) mg/dL Random Glucose (60-115) mg/dL Lactic Acid 1.0 (0.5-2.0) mmol/L Calcium (8.4-10.2) mg/dL Urine Color YELLOW Urine Appearance TURBID Urine pH 6.5 (5.0-8.0) Ur Specific Acton <= 1.005 (1.005-1.025) Urine Protein TRACE (NEG-TRACE) MG/DL Urine Glucose (UA) 500 H (NEG) MG/DL Urine Ketones NEG (NEG) MG/DL Urine Blood 2+ H (NEG) Urine Nitrite NEG (NEG) Ur Leukocyte Esterase 2+ H (NEG) Urine RBC 5-9 H (0) /HPF Urine WBC TNTC H (0-4) /HPF Ur Squamous Epith Cells NONE /LPF Urine Bacteria 1+ /LPF Urine Yeast 3+ /HPF Discharge Plan Discharge Clinical Impression: Chronic ulcer of sacral region, UTI (urinary tract infection) due to urinary indwelling Burnham catheter Patient Disposition: Left Against Medical Advice Instructions: How to Prevent Pressure Injuries (ED), Against Medical Advice (ED) Additional Instructions: Please take your medication. Please monitor your sugar carefully. Worsened condition return to the emergency department. Prescriptions: No Action lamotrigine [Lamictal] 200 mg Tablet 200 mg PO BEDTIME RF: 0 Lantus U-100 Insulin 100 unit/mL Solution 24 unit SUBCUT BEDTIME RF: 0 clopidogrel 75 mg Tablet 75 mg PO DAILY RF: 0 mirtazapine 15 mg Tablet 15 mg PO BEDTIME RF: 0 emtricitabine-tenofovir (TDF) [Truvada] 200-300 mg Tablet 1 tab PO DAILY RF: 0 potassium, sodium phosphates [Phos-NaK] 280-160-250 mg Powder In Packet 2 packet PO DAILY RF: 0 cholecalciferol (vitamin D3) 75 mcg (3,000 unit) Tablet 75 mcg PO DAILY RF: 0 pyridoxine (vitamin B6) 50 mg Tablet 50 mg PO DAILY RF: 0 zinc sulfate 220 mg Tablet 220 mg PO DAILY RF: 0 rifampin 300 mg Capsule 300 mg PO BID RF: 0 ascorbic acid (vitamin C) 500 mg Tablet 500 mg PO BID RF: 0 cephalexin 500 mg Capsule 500 mg PO BID RF: 0 ferrous sulfate 325 mg (65 mg iron) Tablet 325 mg PO BID RF: 0 Lactobacillus rhamnosus GG 10 billion cell Capsule 1 cap PO BID RF: 0 heparin (porcine) 5,000 unit/mL Syringe 5,000 unit subcut BID RF: 0 dolutegravir 50 mg Tablet 50 mg PO BID RF: 0 acetaminophen 325 mg Tablet 650 mg PO Q6H PRN (Reason: Fever Or Pain) RF: 0 clonazepam 0.5 mg Tablet 0.5 mg PO BID PRN (Reason: Anxiety) RF: 0 miconazole nitrate 2 % Powder 1 applic TOPICAL QSHIFT RF: 0 bisacodyl 10 mg Suppository 10 mg IL DAILY RF: 0 gabapentin 100 mg Capsule 100 mg PO TID RF: 0 insulin lispro [Humalog U-100 Insulin] 100 unit/mL Solution 1 sliding scale dose SUBCUT QIDACHS RF: 0 insulin lispro [Humalog U-100 Insulin] 100 unit/mL Solution 8 unit SUBCUT TID RF: 0 melatonin 10 mg Tablet 10 mg PO BEDTIME PRN (Reason: Sleep) RF: 0 magnesium hydroxide [Milk of Magnesia] 400 mg/5 mL Suspension 400 mg PO BEDTIME PRN (Reason: Constipation) RF: 0 polyethylene glycol 3350 [Miralax] 17 gram/dose Powder 17 g PO DAILY PRN (Reason: Constipation) RF: 0 albuterol sulfate [Ventolin HFA] 90 mcg/actuation Hfa Aerosol Inhaler 2 puff INHALATION Q6H PRN (Reason: Respiratory Distress) RF: 0 oxycodone 10 mg Tablet 10 mg PO Q4H PRN (Reason: Pain (Scale Score 4-6)) RF: 0 oxycodone 10 mg tablet 10 mg PO BID PRN (Reason: pain) Qty: 10 RF: 0 Referrals: Physician,Unknown [Primary Care Provider] - 2 days
--- NOTE | 2020-08-29 07:40 | PC.NURSE ---
pt is a/o x 3 no sob/pk noted skin pink warm dry with 2 unstageable wounds/ulcers to coccyx and and r buttocks. pt also has a dressing to mid back. pt is constantly and consistently ringing the [facility] asking for dilauded med for pain. md aware.
[2020-08-29 07:41] LABS: Glucose, Whole Blood 455 mg/dL (60-115)
--- NOTE | 2020-08-29 07:45 | PC.NURSE ---
pt has thick yellow/creamy vaginal discharge md aware.
--- NOTE | 2020-08-29 07:46 | PC.NURSE ---
dressing change to coccyx and r buttock, large amt of serosanganious drainage.
--- NOTE | 2020-08-29 08:02 | PC.NURSE ---
pt poc 455, pt c/o slight anxiety, md aware
[2020-08-29] MEDS: Acetaminophen 325 MG TABLET 650 MG PO (08:03)
[2020-08-29] MEDS: HYDROmorphone HCl 1 MG/ML SYRINGE IVPUSH (08:03)
[2020-08-29] MEDS: Insulin Lispro 100 UNIT/ML 3 ML VIAL 8 UNIT SUBCUT (08:04)
[2020-08-29] MEDS: clonazePAM 0.5 MG TABLET PO (08:06)
[2020-08-29] MEDS: Cholecalciferol (Vitamin D3) 25 MCG TABLET 75 MCG PO (09:33)
[2020-08-29] MEDS: Pyridoxine HCl (Vitamin B6) 50 MG TABLET PO (09:34)
[2020-08-29] MEDS: Gabapentin 100 MG CAPSULE PO (09:34)
[2020-08-29] MEDS: Ascorbic Acid 500 MG TABLET PO (09:34)
[2020-08-29] MEDS: Ferrous Sulfate 324 MG TABLET.DR PO (09:35)
[2020-08-29] MEDS: cephALEXin 500 MG CAPSULE PO (09:35)
[2020-08-29] MEDS: Heparin Sodium,Porcine 5,000 UNIT/ML VIAL 5000 UNIT SUBCUT (09:37)
[2020-08-29] MEDS: Dolutegravir Sodium 50 MG TABLET PO (09:39)
[2020-08-29] MEDS: rifAMPin 300 MG CAPSULE PO (09:39)
[2020-08-29] MEDS: Emtricitabin/Tenofovir 200/300 TABLET 1 TAB PO (09:39)
[2020-08-29] MEDS: bisacodyL 10 MG SUPP.RECT PR (09:39)
[2020-08-29] MEDS: Nystatin Powder 15 GM BOTTLE 1 APPL TOPICAL (09:41)
--- NOTE | 2020-08-29 09:46 | MHC.CM.ED ---
Addendum entered by Melanie Griffin 08/29/20 14:54: Pt not age eligable for GSSS filing: Discussed case with SW: Referred to [place] [employer] at [phone]: recorded message noted long hold times: on hold then disconnected x 4. Will re try on 08/30. Addendum entered by Melanie Griffin 08/29/20 14:18: Review of VNA broadcast: no accepting agencies at this time: [facility] has declined her citing hx of non compliance and AMA as did other agencies. Some agencies are at capacity and not accepting new clients or have staffing capacity limits. Call placed to pt's dtr Pauliedesi: informed her of above: instructed her to contact PCP for assistance: ? wound care center f/u. Inquired about dressing supplies: John states she has some at the home and can purchase basic dressings from the pharmacy if needed. Addendum entered by Melanie Griffin 08/29/20 12:23: Met with pt who was verbalizing a desire to return to home. 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 Pt also states she recently moved: her new address is [address] [place] [address] in [place]. Pt states she has no services at home other than care provided by her dtr. She recently had long acute care stay in [facility] followed by rehab care at a facility in [place] and subsequent return to [facility] in [place]. Pt admits she left [facility] because she didn't have any care for almost 2 weeks Further questioning notes pt received daily medications, wound care, ADL assistance and was even taken outside 4x daily for cigarettes. Because she left A, she was not eligible for VNA services. Call placed to pt's dtr John at [phone]. John reiterated above: states she does the best that she is able to do for her mom. Instructed her to contact pt's PCP, Dr. Liset Perez at the [facility] for an urgent appt. Pt will need Dr. Perez to write orders for VNA and assist with HOME ENERGY AUDITOR program for pt. Pt is w/c dependent at baseline, uses BLS services for transfer and has several large decubitus on her sacral area. She has an extensive hx of noncompliance and leaving AMA. Will broadcast VNA referrals for daily wound care needs. Pt does not wish to remain in ED until services can be initiated and is requested to d/c. BLS transport arranged. CM to follow Original Note: Received consult for assessment of d/c needs: Pt with high visit hx for chronic decubitus wounds, strong hx of noncompliance, AMA both acute and subacute care settings, substance abuse: presented to ED from home with pain: per RN, wounds had soiled dressings: wound bed with feces present: overall poor hygiene. Review of EMR notes elevated WBC, + UA, elevated BG, immunocompromised d/t HIV+: wounds described by RN with +slough, ? necrotic tissue. Discussed admission criteria with MD: MD feels pt does not require admission at this time. Attempted to meet with pt: sleeping quite soundly and not arouseable. Will re approach when awake.
--- NOTE | 2020-08-29 09:58 | PC.NURSE ---
pt is requesting to leave md velia aware. man cath emptied for 1200ml yellow urine.
[2020-08-29] MEDS: Clopidogrel Bisulfate 75 MG TABLET PO (10:03)
[2020-08-29] MEDS: Sodium,Potassium Phosphates POWD.PACK 2 PACKET PO (10:14)
[2020-08-29] MEDS: Zinc Sulfate 220 MG CAPSULE PO (10:14)
--- NOTE | 2020-08-29 10:52 | PC.NURSE ---
this rn spoke with cathryn (case management) who will be coming to speak with pt.
--- NOTE | 2020-08-30 10:42 | MHC.CM.PN ---
Received VNA acceptance from [facility] in [place]. F2F and d/c summary remitted via flexReceipts: VM left for both pt and her Dtr/VERIFYING SPECIALIST Dasenia informing them of agency and contact information.
== END 2020-08-29 12:01 | disposition left against medical advice (07) ==
PROVIDERS: Emergency Provider Emergency Medicine
DX: L89.150 Pressure ulcer of sacral region, unstageable (principal); T83.511A Infection and inflammatory reaction due to indwelling urethral catheter, initial encounter; N39.0 Urinary tract infection, site not specified; Y73.8 Miscellaneous gastroenterology and urology devices associated with adverse incidents, not elsewhere classified; Y92.9 Unspecified place or not applicable; Z79.899 Other long term (current) drug therapy; F17.200 Nicotine dependence, unspecified, uncomplicated; Z71.6 Tobacco abuse counseling
CPT/HCPCS: 36415; 72193; 74176; 80048; 81001; 82947; 83605; 85025; 87040; 96361; 96365; 96372; 96375; 99284; 99285; J0696; J1170; J1200; Q9967